=== PATIENT | female | born 2000 | race Caucasian/White ===

== ENCOUNTER 2021-05-08 14:15 | Outpatient (CLI) | payer MEDICAID, SELFPAY ==
[2021-05-08] VITALS (17 sets, daily range): BP systolic 130–196; BP diastolic 75–94; PULSE 75–110; RESP 17; TEMP 36
--- NOTE | 2021-05-08 14:54 | US_ITS ---
WS: [id number] Obstetrical ultrasound, limited. HISTORY: Injury to abdomen. COMPARISON: 02/08/2021. Single intrauterine gestation is identified with heart rate at 144 bpm. Fetus is in vertex presentati on. The cervix is not identified. The placenta is posterior with no previa or abruption. Normal amount of amniotic fluid. US/US OB limited [id number] IMPRESSION: 1. Posterior placenta with no previa or abruption. 2. Normal amniotic fluid. 3. Normal cardiac activity. 4. Cervix obscured by head.
[2021-05-08] MEDS: terbutaline 1 mg/mL INJ 0.25 MG SUBCUT (16:03)
[2021-05-08 16:59] LABS: Add Urine Microscopic? NO; Charge for UA Resulting for Rev
[2021-05-08 17:22] LABS: Bilirubin Urine Neg (Negative); Blood Urine Neg (Negative); Glucose Urine UA Norm (Normal); Ketones Urine Negative (Negative); Leukocyte Esterase Urine Negative (Negative); Nitrate Urine Negative (Negative); Protein Urine Neg (Negative); Specific Gravity, Urine 1.015 (1.005-1.030); Urine Appearance Clear (CLEAR); Urine Color Yellow (Yellow); Urobilinogen Urine Norm (Negative); pH Urine 6 (5-7)
[2021-05-08 17:23] LABS: Basophils % 0.3 %; Eosinophils # 0.1 10^3/uL (0.0-0.8); Eosinophils % 1.4 %; Hematocrit 38.9 % (37.0-47.0); Hemoglobin 12.1 g/dL (11.5-15.3); Lymphocytes # 1.7 10^3/uL (1.5-6.5); Lymphocytes % 16.8 %; Mean Corpuscular HGB Conc 31.1 g/dL (30.0-36.0); Mean Corpuscular Hemoglobin 27.3 pg (28.0-34.0); Mean Corpuscular Volume 87.6 fl (81-99); Mean Platelet Volume 10.5 fL (7.4-10.4); Monocytes % 9.8 %; Neutrophils # 6.57 10^3/uL (1.8-8.0); Nucleated Red Blood Cells % 0 %; Platelet Count 143 10^3/cmm (130-400); Red Blood Count 4.44 10^6/uL (4.1-5.3); Red Cell Distribution Width 14.1 % (12.1-15.1); White Blood Count 9.8 10^3/uL (4.5-13.0)
[2021-05-08 18:02] LABS: Alanine Aminotransferase 11 U/L (0-33); Albumin Level 3.9 g/dL (3.5-5.2); Alkaline Phosphatase 118 IU/L (35-105); Anion Gap 17.4 (5-19); Aspartate Amino Transferase 16 U/L (0-32); Blood Urea Nitrogen 12 mg/dL (6-20); Calcium 9.9 mg/dL (8.5-10.5); Carbon Dioxide 22 mmol/L (22-29); Chloride 100 mmol/L (98-107); Globulin 3.3 g/dL (1.3-4.6); Glomerular Filtration Rate 127.5 mL/min (90-130); Glucose 98 mg/dL (65-115); Osmolality Calculated 282 mOsm/kg (285-295); Potassium 3.4 mmol/L (3.5-5.1); Sodium 136 mmol/L (136-145); Total Bilirubin 0.2 mg/dL (0.15-1.2); Total Protein 7.2 g/dL (6.6-8.7); Uric Acid 4.2 mg/dL (2.4-5.7)
[2021-05-08 18:04] LABS: Urine Creatinine 45 mg/dL (28-217); Urine Protein Random 10 mg/dL
[2021-05-08 18:09] LABS: UPRO/UCREAT Ratio 0.22 mg/mg CR
== END 2021-05-08 18:14 | disposition home or self-care (01) ==
LOC: OPOB 14:24 → OBGYN 14:26
PROVIDERS: Visit Provider Family Medicine
DX: O26.899 Other specified pregnancy related conditions, unspecified trimester (principal); Z3A.00 Weeks of gestation of pregnancy not specified; R10.9 Unspecified abdominal pain
CPT/HCPCS: 36415; 59025; 76815; 80053; 81003; 82570; 84156; 84550; 85025; 96372; 99211; J3105

== ENCOUNTER 2021-05-27 19:44 | Inpatient (IN) | payer MEDICAID, SELFPAY ==
[2021-05-27] VITALS (25 sets, daily range): BP systolic 123–179; BP diastolic 73–114; PULSE 76–114; RESP 17; BMI 27.7
[2021-05-27 19:32] LABS: Basophils # 0.1 10^3/uL (0.0-0.1); Basophils % 0.4 %; Eosinophils # 0.2 10^3/uL (0.0-0.8); Eosinophils % 1.4 %; Hemoglobin 12.1 g/dL (11.5-15.3); Lymphocytes # 1.6 10^3/uL (1.5-6.5); Mean Corpuscular HGB Conc 32.7 g/dL (30.0-36.0); Mean Corpuscular Hemoglobin 27.4 pg (28.0-34.0); Mean Corpuscular Volume 83.9 fl (81-99); Mean Platelet Volume 10.8 fL (7.4-10.4); Monocytes # 1.2 10^3/uL (0.2-0.9); Neutrophils # 9.88 10^3/uL (1.8-8.0); Neutrophils % 74.7 %; Nucleated Red Blood Cells % 0 %; Platelet Count 164 10^3/cmm (130-400); Red Blood Count 4.41 10^6/uL (4.1-5.3); Red Cell Distribution Width 13.7 % (12.1-15.1); White Blood Count 13.2 10^3/uL (4.5-13.0)
[2021-05-27] MEDS: hyDRALAzine 20 mg/mL INJ 1 mL 10 MG IVP (19:38)
[2021-05-27 19:41] LABS: Add Urine Microscopic? YES; Bilirubin Urine Neg (Negative); Blood Urine 3+ (Negative); Glucose Urine UA Norm (Normal); Ketones Urine Negative (Negative); Leukocyte Esterase Urine 2+ (Negative); Nitrate Urine Negative (Negative); Protein Urine Trace (Negative); Specific Gravity, Urine 1.015 (1.005-1.030); Urine Color Yellow (Yellow); Urobilinogen Urine Norm (Negative); pH Urine 5 (5-7)
[2021-05-27] MEDS: dextrose 5%-lactated ringers 1,000 ML 125 ML IV (19:43)
[2021-05-27 19:49] LABS: Add Urine Culture? No; Amorphous Sediment Urine 1+ /hpf; Bacteria Urine 2+ /hpf; Squamous Epithelial Cell Urine 25-40 /hpf (0-5)
[2021-05-27 19:57] LABS: Alanine Aminotransferase 12 U/L (0-33); Albumin Level 3.8 g/dL (3.5-5.2); Alkaline Phosphatase 149 IU/L (35-105); Anion Gap 16.7 (5-19); Aspartate Amino Transferase 19 U/L (0-32); Blood Urea Nitrogen 12 mg/dL (6-20); Calcium 9.7 mg/dL (8.5-10.5); Carbon Dioxide 21 mmol/L (22-29); Chloride 100 mmol/L (98-107); Creatinine Clr Calc Pharmacy 163.0923; Globulin 3.3 g/dL (1.3-4.6); Glomerular Filtration Rate 127.5 mL/min (90-130); Glucose 81 mg/dL (65-115); Osmolality Calculated 277 mOsm/kg (285-295); Potassium 3.7 mmol/L (3.5-5.1); Sodium 134 mmol/L (136-145); Total Bilirubin 0.2 mg/dL (0.15-1.2); Total Protein 7.1 g/dL (6.6-8.7); Uric Acid 4.7 mg/dL (2.4-5.7)
[2021-05-27 20:00] LABS: Urine Creatinine 54 mg/dL (28-217); Urine Protein Random 18 mg/dL
[2021-05-27 20:08] LABS: UPRO/UCREAT Ratio 0.33 mg/mg CR
[2021-05-27] MEDS: labetalol 5 mg/mL SDV 20mL 20 MG IVP (20:19)
[2021-05-27] MEDS: hyDROXYzine 25 mg Capsule 50 MG PO (20:32)
[2021-05-27] MEDS: ondansetron 2 mg/ML SDV 2 mL 4 MG IVP (20:32)
[2021-05-27] MEDS: ampicillin 2,000 MG in sodium chloride 0.9% (plus) 50 ML 100 MG IV (20:33)
[2021-05-28] VITALS (168 sets, daily range): BP systolic 107–176; BP diastolic 66–118; PULSE 78–218; RESP 15–18; TEMP 36.2–37.6; O2SAT 82–100
[2021-05-28] MEDS: ampicillin 1,000 MG in sodium chloride 0.9% (plus) 50 ML 100 MG IV ×4 (00:40→13:11)
[2021-05-28] MEDS: oxytocin 30 UNIT/500 ML BAG IV (00:41)
[2021-05-28] MEDS: fentaNYL 50 mcg/mL INJ 2mL IVP (03:43)
[2021-05-28] MEDS: lactated ringers 1,000 ML 999 ML IV ×2 (03:47→14:22)
[2021-05-28] MEDS: labetalol 5 mg/mL SDV 20mL 20 MG IVP (04:19)
[2021-05-28] MEDS: ondansetron 2 mg/ML SDV 2 mL 4 MG IVP (04:48)
--- NOTE | 2021-05-28 04:50 | P.ANESUD_ITS ---
Pre-Anesthetic Update Pre-Anesthetic Assessment: Date of Surgery/Procedure: 05/28/21 Preop Jelly gnosis: labor pains Proposed Procedure: epidural Any changes to Pre-Anesthetic Assessment?: No Labs Last 48hrs: Short CBC 05/27/21 Range/Units 19:00 WBC 13.2 H (4.5-13.0) 10^3/ uL Hgb 12.1 (11.5-15.3) g/dL Hct 37.0 (37.0-47.0) % MCV 83.9 (81-99) fl Plt Count 164 (130-400) 10^3/c mm Neut % (Auto) 74.7 % Neut # (Auto) 9.88 H (1.8-8.0) 10^3/u L BMP 05/27/21 19:00 Sodium 134 L Potassium 3.7 Chloride 100 Carbon Dioxide 21 L BUN 12 Creatinine 0.6 Glucose 81 Calcium 9.7 Liver Function 05/27/21 Range/Units 19:00 Total Bilirubin 0.2 (0.15-1.2) mg/dL AST 19 (0-32) U/L ALT 12 (0-33) U/L Alkaline Phosphata se 149 H (35-105) IU/L Albumin 3.8 (3.5-5.2) g/dL Urine 05/27/21 Range/Units 19:00 Urine Color Yellow (Yellow) Urine Appearance Sl cloudy A (CLEAR) Urine pH 5 (5-7) Ur Specific Gravit y 1.015 (1.005-1.030) Urine Protein Trace (Negative) Urine Glucose (UA) Norm (Normal) Urine Ketones Negative (Negative) Urine Nitrate Negative (Negative) Urine Bilirubin Neg (Negative) Ur Leukocyte Fely ase 2+ H (Negative) Urine RBC 10-15 H (0-2) /hpf Urine WBC 10-15 H (0-5) /hpf Vitals: Pulse Rate 100 05/28/21 04:37 Pulse Rhythm 05/27/21 21:34 Pulse Strength 3+ Normal 05/27/21 21:34 Respiratory Rate 16 05/28/21 03:43 Respiratory Effort Non-Labored 05/27/21 21:34 Respiratory Depth Normal 05/27/21 21:34 Respiratory Patter n 05/27/21 21:34 Blood Pressure 151/90 05/28/21 04:37 Oxygen Delivery Me thod 05/27/21 21:34 Exam: Pre-Anes Outpt Exam: alert, oriented x 3, clear to auscultation bilaterally and regular rate & rhythm Cardiac Studies: No Data to Display
--- NOTE | 2021-05-28 05:23 | P.ANES_ITS ---
Anesthesia Procedures Procedure/Date: 05/28/21 epidural Procedure Narrative: epidural complete, bolus given, epidural pump initiated with REAL ESTATE SITE ANALYST education given, vitals taken during procedure using OBIX system and satisfactory throughout, patient admits to decrease pain, report of procedure to OB RN Epidural: Time Out Performed: Yes Consents Signed: Procedure Consent Consent: requested by attending/covering physician, from patient, risks and benefits reviewed and patient agrees to proceed Lumbar Level: L3-L4 Epidural position: sitting Epidural procedure: sterile prep of area, 1% lidocaine to numb the area (3 mL), 18 g needle, negative for paresthesia passed, neg for paresthesia, test dose given, 1.5% xylocaine 1:200k epi (5 mL), 0.2% Ropivacaine bolus ml (5 mL), placed PCEA, no systemic response, sterile dressing applied, L.U.D. no apparent complications and 0.2% Ropiavacaine @ mls/hr (13 mL/hr)
[2021-05-28] MEDS: dextrose 5%-lactated ringers 1,000 ML 125 ML IV ×2 (09:14→20:40)
--- NOTE | 2021-05-28 10:47 | PM.OPHPUD ---
Labor & Delivery H&P Update Date of Procedure: May 28, 2021 Date H&P Performed: 05/23/21 Admission Diagnosis: induced hypertension Preop diagnosis: labor pains Primary indication for procedure: severely elevated blood pressures at term Planned procedure: augmentation and/or induction of labor
[2021-05-28] MEDS: miSOPROStol 200 mcg Tablet 800 MCG PR (14:12)
[2021-05-28] MEDS: oxytocin 30 UNIT/500 ML BAG 600 UNIT IV (14:23)
--- NOTE | 2021-05-28 14:57 | P.ANESUD_ITS ---
Pre-Anesthetic Update Pre-Anesthetic Assessment: Date of Surgery/Procedure: 05/28/21 Preop Jelly gnosis: labor pains Proposed Procedure: Cervical laceration repair Changes from Pre-Anesthetic Assessment: none Last Intake: > 8 hrs Labs Last 48hrs: Short CBC 05/27/21 Range/Units 19:00 WBC 13.2 H (4.5-13.0) 10^3/ uL Hgb 12.1 (11.5-15.3) g/dL Hct 37.0 (37.0-47.0) % MCV 83.9 (81-99) fl Plt Count 164 (130-400) 10^3/c mm Neut % (Auto) 74.7 % Neut # (Auto) 9.88 H (1.8-8.0) 10^3/u L BMP 05/27/21 19:00 Sodium 134 L Potassium 3.7 Chloride 100 Carbon Dioxide 21 L BUN 12 Creatinine 0.6 Glucose 81 Calcium 9.7 Liver Function 05/27/21 Range/Units 19:00 Total Bilirubin 0.2 (0.15-1.2) mg/dL AST 19 (0-32) U/L ALT 12 (0-33) U/L Alkaline Phosphata se 149 H (35-105) IU/L Albumin 3.8 (3.5-5.2) g/dL Urine 05/27/21 Range/Units 19:00 Urine Color Yellow (Yellow) Urine Appearance Sl cloudy A (CLEAR) Urine pH 5 (5-7) Ur Specific Gravit y 1.015 (1.005-1.030) Urine Protein Trace (Negative) Urine Glucose (UA) Norm (Normal) Urine Ketones Negative (Negative) Urine Nitrate Negative (Negative) Urine Bilirubin Neg (Negative) Ur Leukocyte Fely ase 2+ H (Negative) Urine RBC 10-15 H (0-2) /hpf Urine WBC 10-15 H (0-5) /hpf Blood Bank 05/27/21 19:00 Blood Type B Positive Rho(D) Type Positive Antibody Screen Negative Vitals: Temperature 98.6 F 05/28/21 10:07 Temperature Source Oral 05/28/21 10:07 Pulse Rate 121 H 05/28/21 14:49 Pulse Rhythm 05/27/21 21:34 Pulse Strength 3+ Normal 05/27/21 21:34 Respiratory Rate 18 05/28/21 05:26 Respiratory Effort Non-Labored 05/27/21 21:34 Respiratory Depth Normal 05/27/21 21:34 Respiratory Patter n 05/27/21 21:34 Blood Pressure 139/90 05/28/21 14:45 Pulse Oximetry 100 05/28/21 14:49 Oxygen Delivery Me thod 05/27/21 21:34 Exam: Pre-Anes Outpt Exam: alert, oriented x 3, clear to auscultation bilaterally and regular rate & rhythm Additional Exam Findings (including area of procedure): tachy Cardiac Studies: No Data to Display
[2021-05-28 15:39] LABS: Hematocrit 31.7 % (37.0-47.0); Hemoglobin 10.1 g/dL (11.5-15.3); Mean Corpuscular HGB Conc 31.9 g/dL (30.0-36.0); Mean Corpuscular Hemoglobin 28.2 pg (28.0-34.0); Mean Corpuscular Volume 88.5 fl (81-99); Mean Platelet Volume 10.9 fL (7.4-10.4); Platelet Count 175 10^3/cmm (130-400); Red Blood Count 3.58 10^6/uL (4.1-5.3); Red Cell Distribution Width 14.2 % (12.1-15.1); White Blood Count 17.7 10^3/uL (4.5-13.0)
--- NOTE | 2021-05-28 16:22 | PM.OP ---
Operative Report Date of procedure: May 28, 2021 Pre-op diagnosis: Preop Diagnosis labor pains Post-op diagnosis: Status post spontaneous vaginal delivery. hemorrhage. Cervical laceration Post-op findings: Same as above Procedure done: Cervical laceration repair Specimens removed/disposition: None Pathology: None Surgeon: Hood Giron MD Estimated blood loss: 25 IV fluids (mL): 700 Urine output (mL): 1,200 Complications: none Procedure: The patient is a 21-year-old who delivered via vaginal delivery. Dr. Amaro had nurse call me due suspected laceration after delivery with hemorrage no responding to medical management. The uterus, however, was firm. A full evaluation of the cervix at bedside was limited but it was noted to have a posterior cervical laceration. The patient was counseled regading the findins and recommendation to take her to the OR for better exposure. The patient was taken to the OR, prepped and draped in a normal sterile fashion. Betadine was used to sterilize the area. A small Uriah retractor was used to retract redunt tissue then a weighted speculum was placed and good visualization of the area was noted. It was at this time when the extend of posterior cervical lacerations was noted. It was not currently bleeding at this time, however, it was clear that this needed to be repaired and 0 Vicryl on a SH needle was used to repair the cervical tears. The cervix patentcy was insure with the use of cervical dilator. It was determined at this point that the bleeding episode that she encountered was secondary to the cervical lacerations which was repaired at that time and brought under control. The patient tolerated the procedure well. No further uterine bleeding was noted during the procedure. The instruments were removed from the vagina, and excellent hemostasis was noted. The patient tolerated the procedure well, and sponge, lap and needle count were correct times two. The patient was taken to the recovery room in good condition.
--- NOTE | 2021-05-28 16:26 | P.PCNOB_ITS ---
Delivery Note: Date of delivery: May 28, 2021 Delivery: This is a 21-year-old at 38 weeks 0 days gestation who presented to labor and delivery complaining of regular contractions. She was noted to have some severely elevated blood pressures and decision was made to go ahead and augment and or induce for -induced hypertension. I do not suspect preeclampsia since she dipped trace protein in her urine however her urine protein creatinine ratio was 0.33. Her platelets AST, ALT and uric acid were within normal limits. The patient received an epidural for pain management and her labor was augmented using Pitocin. The patient had some difficulty with pushing and her contractions were not very strong nor were they coordinated. She was allowed to labor down but the infant only came down to +1 station. Mother was becoming exhausted with pushing so vacuum was applied with 2 pop offs. The vacuum moved to the to and mother was able to push the the rest of the way for delivery. weight 7 pounds 10 ounces, Apgars 9 and 9. She delivered over an intact perineum. The infant was suctioned at delivery and placed on the mother's chest. The cord was clamped and cut. Cord blood was obtained. The placenta was delivered grossly intact and normal to inspection. Immediately after delivery the patient had moderate vaginal bleeding that continued despite firm fundus and aggressive fundal massage. The patient was given 800 mcg of Cytotec rectally. She was also started on [place] 6 Ricky acid infusion. The patient continued to bleed at a rather brisk pace. Vaginal inspection revealed a full-thickness cervical tear at approximately 5:[address] to the posterior fornix. Pressure was applied and [employer] DECKHAND on-call Dr. Giron, anesthesia, and the surgical team were called. The patient was taken down to the OR for cervical laceration repair. EBL 1 Liter. A&P Assessment and plan (1) Status post vacuum-assisted vaginal delivery: Status: Acute (2) Cervical laceration: Status: Acute Coding Level of Care Code Acute Modeling Teacher for Anthony Abad Diagnoses Status post vacuum-assisted vaginal delivery Z87.59 Cervical laceration S37.63XA
--- NOTE | 2021-05-28 18:25 | PC.NURSE ---
Kiwi vacuum on at 1331 and 14 seconds, pop off at 1331 and 32 seconds. Kiwi on at 1331 and 50 seconds, pop off 1333 and 47 seconds. COMPA PEGUERO
[2021-05-28] MEDS: HYDROcodone-acetaminophen 5-325 mg Tablet PO (19:33)
[2021-05-28] MEDS: docusate sodium 100 mg Capsule PO (20:39)
[2021-05-28] MEDS: ketorolac 30 mg/mL INJ IVP (20:40)
[2021-05-29 01:00] VITALS: BP 130/84; PULSE 95; RESP 16; O2SAT 97
[2021-05-29] MEDS: benzocaine-menthol 78 gm Canister 1 SPRAY TOPICAL (01:11)
[2021-05-29] MEDS: ketorolac 30 mg/mL INJ IVP ×2 (02:26→08:35)
[2021-05-29 03:00] VITALS: BP 133/80; PULSE 93; O2SAT 98
[2021-05-29 05:17] LABS: Hematocrit 25.2 % (37.0-47.0); Hemoglobin 8.1 g/dL (11.5-15.3); Mean Corpuscular HGB Conc 32.1 g/dL (30.0-36.0); Mean Corpuscular Hemoglobin 27.7 pg (28.0-34.0); Mean Corpuscular Volume 86.3 fl (81-99); Mean Platelet Volume 10.5 fL (7.4-10.4); Platelet Count 108 10^3/cmm (130-400); Red Blood Count 2.92 10^6/uL (4.1-5.3); Red Cell Distribution Width 14.3 % (12.1-15.1); White Blood Count 13.3 10^3/uL (4.5-13.0)
[2021-05-29] MEDS: docusate sodium 100 mg Capsule PO ×2 (08:35→18:21)
[2021-05-29 08:41] VITALS: BP 143/89; PULSE 95; RESP 18; TEMP 36.9; O2SAT 97
[2021-05-29 11:02] VITALS: BP 126/88; PULSE 86; RESP 16; TEMP 36.7; O2SAT 96
--- NOTE | 2021-05-29 12:50 | PM.PN ---
Subjective Subjective: The patient has some lower abdominal soreness and some vaginal swelling but otherwise she is feeling well. She has been ambulating the halls. She is tolerating a regular diet. Vitals/I&O/Wt Last Vital Signs Temp 98.1 F 05/29/21 11:02 Pulse 86 05/29/21 11:02 Resp 16 05/29/21 11:02 BP 126/88 05/29/21 11:02 Pulse Ox 96 05/29/21 11:02 05/28/21 05/29/21 05/29/21 22:59 06:59 14:59 Intake Total 0 / 1052.083 Output Total 3525 / 3525 650 / 4175 Balance -3525 / -2472.917 -650 / -3122.917 Weight last 48 hrs Weight 80.286 kg Physical Exam Narrative: Alert and oriented, resting in bed, pupils equal round reactive to light, extraocular movements intact, lungs clear to auscultation bilaterally, heart regular rate and rhythm abdomen is soft with some tenderness only to very deep palpation. Fundus is nice and firm, extremities have trace edema with no calf tenderness. Urinary Catheter Management: Valdes Latex: Cath Placed During This Visit: yes, but has since been removed by the nurse Reason for Continuing Indwelling Catheter: Accurate Measurement of Urinary Output in Critically Ill Patients Urinary Catheter Date of Insertion: 05/28/21 Urinary Catheter Time of Insertion: 15:20 Date Urinary Catheter Removed: 05/28/21 Time Urinary Catheter Discontinued: 16:20 Data : 05/29/21 05:07 05/27/21 19:00 A&P Assessment and plan (1) Status post vacuum-assisted vaginal delivery: day #1 doing well Status: Acute (2) Cervical laceration: Postop day #1 doing well Status: Acute (3) Acute blood loss anemia: Secondary to cervical laceration during delivery. The patient is asymptomatic. She has been ambulating the hallways without dizziness. Status: Acute Attestations Medical Necessity Statement*: Routine and postoperative care Coding Level of Care Code Acute Inbound Customer Service Agent for Anthony Fwmichelet Diagnoses Status post vacuum-assisted vaginal delivery Z87.59 Cervical laceration S37.63XA Acute blood loss anemia D62
[2021-05-29 14:00] VITALS: BP 120/72; PULSE 86; RESP 18; TEMP 36.4
--- NOTE | 2021-05-29 15:24 | ANE.PACU2 ---
Inpatient post-anesthesia follow up: Airway intact: Yes Vital signs: Temperature 98.1 F Pulse Rate 86 Respiratory Rate 16 Blood Pressure 126/88 Pulse Oximetry 96 Oxygen Delivery Me thod Room Air Oxygen Flow Rate Fraction of Inspir ed Oxygen Hydration adequate: Yes Nausea and vomiting: No Pain level: 2 Mental status: Baseline
[2021-05-29] MEDS: ibuprofen 800 mg tablet PO (16:34)
[2021-05-29 20:59] VITALS: BP 142/82; PULSE 93; TEMP 36.9; O2SAT 97
[2021-05-30] MEDS: ibuprofen 800 mg tablet PO ×3 (00:37→15:13)
[2021-05-30 03:48] VITALS: BP 138/88; PULSE 87; RESP 17; TEMP 36.5; O2SAT 98
[2021-05-30] MEDS: docusate sodium 100 mg Capsule PO (08:41)
[2021-05-30 08:52] VITALS: BP 139/94; PULSE 89; RESP 17; TEMP 36.6
--- NOTE | 2021-05-30 12:49 | PM.DCS ---
Discharge Providers Date of Admission: 05/27/21 19:44 Date of Discharge: May 30, 2021 Attending Provider at Admission: Anh Amaro MD Attending Provider at Discharge: Anh Amaro MD Diagnoses at Discharge Discharge Diagnosis (1) Status post vacuum-assisted vaginal delivery: Status: Acute (2) Cervical laceration: Status: Acute (3) Acute blood loss anemia: Status: Acute Reason for Visit Reason for Visit: Abdominal pain Hospital Course Hospital Course This is a 21-year-old G1 now P1 who had a vacuum-assisted vaginal delivery of a viable female infant. She had a posterior cervical laceration that caused excessive blood loss and she was taken immediately to the OR downstairs for cervical repair. This was performed by Dr. Giron. Postoperatively the patient did well. Her bleeding was average. She was ambulating, tolerating a regular diet, and had no significant pain on the day of discharge. Physical Exam Narrative: Alert and oriented, walking around the room packing, abdomen is soft nontender, fundus is firm, extremities have no calf tenderness, there is trace nonpitting edema. Urinary Catheter Management: Valdes Latex: Cath Placed During This Visit: yes, but has since been removed by the nurse Reason for Continuing Indwelling Catheter: Accurate Measurement of Urinary Output in Critically Ill Patients Urinary Catheter Date of Insertion: 05/28/21 Urinary Catheter Time of Insertion: 15:20 Date Urinary Catheter Removed: 05/28/21 Time Urinary Catheter Discontinued: 16:20 Discharge Data Studies Completed and Pending Pending at discharge Category Date Time Status Leukocyte Reduced RBC Stat Lab 05/28/21 14:08 Results Type and Screen Stat Lab 05/28/21 14:08 Results Laboratory Results WBC 13.3 10^3/uL (4.5-13.0) H 05/29/21 05:07 RBC 2.92 10^6/uL (4.1-5.3) L 05/29/21 05:07 Hgb 8.1 g/dL (11.5-15.3) L 05/29/21 05:07 Hct 25.2 % (37.0-47.0) L 05/29/21 05:07 MCV 86.3 fl (81-99) 05/29/21 05:07 MCH 27.7 pg (28.0-34.0) L 05/29/21 05:07 MCHC 32.1 g/dL (30.0-36.0) 05/29/21 05:07 RDW 14.3 % (12.1-15.1) 05/29/21 05:07 Plt Count 108 10^3/cmm (130-400) L D 05/29/21 05:07 MPV 10.5 fL (7.4-10.4) H 05/29/21 05:07 Neut % (Auto) 74.7 % 05/27/21 19:00 Lymph % (Auto) 12.0 % 05/27/21 19:00 [place] % (Auto) 9.0 % 05/27/21 19:00 Eos % (Auto) 1.4 % 05/27/21 19:00 Baso % (Auto) 0.4 % 05/27/21 19:00 Neut # (Auto) 9.88 10^3/uL (1.8-8.0) H 05/27/21 19:00 Lymph # (Auto) 1.6 10^3/uL (1.5-6.5) 05/27/21 19:00 [place] # (Auto) 1.2 10^3/uL (0.2-0.9) H 05/27/21 19:00 Eos # (Auto) 0.2 10^3/uL (0.0-0.8) 05/27/21 19:00 Baso # (Auto) 0.1 10^3/uL (0.0-0.1) 05/27/21 19:00 Nucleated RBC % (auto) 0 % 05/27/21 19:00 Nucleated RBCs # 0.0 /100WBC 05/27/21 19:00 Sodium 134 mmol/L (136-145) L 05/27/21 19:00 Potassium 3.7 mmol/L (3.5-5.1) 05/27/21 19:00 Chloride 100 mmol/L (98-107) 05/27/21 19:00 Carbon Dioxide 21 mmol/L (22-29) L 05/27/21 19:00 Anion Gap 16.7 (5-19) 05/27/21 19:00 BUN 12 mg/dL (6-20) 05/27/21 19:00 Creatinine 0.6 mg/dL (0.5-0.9) 05/27/21 19:00 GFR Calculation 127.5 mL/min (90-130) 05/27/21 19: Glucose 81 mg/dL (65-115) 05/27/21 19: Calculated Osmolality 277 mOsm/kg (285-295) L 05/27/21 19: Uric Acid 4.7 mg/dL (2.4-5.7) 05/27/21 19: Calcium 9.7 mg/dL (8.5-10.5) 05/27/21 19: Total Bilirubin 0.2 mg/dL (0.15-1.2) 05/27/21 19:00 AST 19 U/L (0-32) 05/27/21:00 ALT 12 U/L (0-33) 05/27/21: Alkaline Phosphatase 149 IU/L (35-105) H 05/27/21 19:00 Total Protein 7.1 g/dL (6.6-8.7) 05/27/21: Albumin 3.8 g/dL (3.5-5.2) 05/27/21 19: Globulin 3.3 g/dL (1.3-4.6) 05/27/21 19:00 Urine Color Yellow (Yellow) 05/27/21 19:00 Urine Appearance Sl cloudy (CLEAR) A 05/27/21 19:00 Urine pH 5 (5-7) 05/27/21 19: Ur Specific [place] 1.015 (1.005-1.030) 05/27/21 19: Urine Protein Trace (Negative) 05/27/21 19: Urine Glucose (UA) Norm (Normal) 05/27/21 19:00 Urine Ketones Negative (Negative) 05/27/21 19: Urine Blood 3+ (Negative) H 05/27/21 19:00 Urine Nitrate Negative (Negative) 05/27/21 19:00 Urine Bilirubin Neg (Negative) 05/27/21 19: Urine Urobilinogen Norm mg/dL (Negative) 05/27/21 19:00 Ur Leukocyte Esterase 2+ (Negative) H 05/27/21 19:00 Urine RBC 10-15 /hpf (0-2) H 05/27/21 19:00 Urine WBC 10-15 /hpf (0-5) H 05/27/21 19:00 Ur Squamous Epith Cells 25-40 /hpf (0-5) H 05/27/21 19:00 Amorphous Sediment 1+ /hpf 05/27/21 19:00 Urine Bacteria 2+ /hpf (NONE) H 05/27/21 19:00 U Random Total Protein 18 mg/dL 05/27/21 19:00 Urine Creatinine 54 mg/dL (28-217) 05/27/21 19:00 Protein/Creatinin Ratio 0.33 mg/mg CR 05/27/21 19:00 Blood Type B Positive 05/27/21 19:00 Rho(D) Type Positive 05/27/21 19:00 Antibody Screen Negative 05/27/21 19:00 Crossmatch See Detail 05/27/21 19:00 Vitals Last Vital Signs Temp 97.8 F 05/30/21 08:52 Pulse 89 05/30/21 08:52 Resp 17 05/30/21 08:52 BP 139/94 05/30/21 08:52 Pulse Ox 98 05/30/21 03:48 Discharge Plan Discharge Patient Disposition: Home Condition: Stable Prescriptions: New ferrous sulfate 325 mg (65 mg iron) tablet,delayed release (DR/EC) 325 mg PO DAILY Qty: 30 0RF Continued Complete 1 tab PO DAILY 0RF Discharge Orders: Discharge Order (Routine); Ordered 05/30/21 Ordered By: Anh Amaro Referrals: Anh Amaro MD [Physician] - 2 weeks Discharge Diet: Usual diet Discharge Activity: Limit activity as instructed Patient Instructions: Depression (DC), Bleeding (DC), Preeclampsia and Eclampsia After Delivery (GEN), OB Discharge Report, OB Food/Drug Interaction Guide, Opioid Safety, OB Home Care, OB Vaginal Deliveries Discharge Attestations Time Spent in Discharge Care*: less than 30 min Quality Metrics Clinical Quality Measures [ No reported AMI, CVA or VTE this stay] Coding Level of Care Code Acute Chg FW DC note Diagnoses Status post vacuum-assisted vaginal delivery Z87.59 Cervical laceration S37.63XA Acute blood loss anemia D62
[2021-05-30 15:15] VITALS: BP 126/84; PULSE 88; RESP 16; TEMP 36.8
== END 2021-05-30 15:15 | disposition home or self-care (01) | DRG 768 ==
LOC: OPOB 19:44 → OBGYN 19:44
PROVIDERS: Obstetrics & Gynecology; Admitting Provider Family Medicine; Visit Provider Family Medicine
PROC: 0UQG0ZZ Repair Vagina, Open Approach (ICD-10-PCS; 2021-05-28 15:15)
DX: O13.4 Gestational [pregnancy-induced] hypertension without significant proteinuria, complicating childbirth (principal); Z37.0 Single live birth; D62 Acute posthemorrhagic anemia; O71.3 Obstetric laceration of cervix; Z3A.38 38 weeks gestation of pregnancy; O90.81 Anemia of the puerperium
CPT/HCPCS: 36415; 51702; 59025; 59409; 80053; 81001; 82570; 84156; 84550; 85025; 85027; 86850; 86900; 86920; 99211; J0290; J0330; J0360; J1100; J1885; J2250; J2405; J2704; J2795; J3010; J3490

== ENCOUNTER 2022-01-19 09:02 | Emergency (ER) | payer MEDICAID, SELFPAY ==
[2022-01-19 09:21] VITALS: BP 134/88; PULSE 103; RESP 16; TEMP 36.4; O2SAT 96; BMI 25.8
--- NOTE | 2022-01-19 09:49 | ED_ITS ---
HPI - Ear Problem General: Chief complaint: Ear Stated complaint: ear infection, fever Time Seen by Provider: 01/19/22 09:04 History of Present Illness: Patient reports that she is feeling generally terrible. She offers that for 2 to 3 weeks she has had significant nasal congestion and drainage. She reports that approximately a week ago she started having intermittent right ear pain. She reports that last night she developed a fever and her ear pain worsened tremendously. She states that her right ear hurts all along her cheek on the right side hurts in the right side of her throat hurts to swallow. She denies any possibility of at this time she is not breast-feeding. Associated symptoms: Reports ear or mastoid pain and fever(s) Review of Systems Const: Reports: fever(s), chills and body aches ENMT: Reports: throat pain, ear or mastoid pain, nasal discharge, nasal congestion, post nasal drip and sinus pain Card: Denies: chest pain or palpitations Resp: Denies: dyspnea, productive cough or non-productive cough GI: Denies: abdominal pain, nausea or vomiting Physical Exam Const: COMMON NORMALS: patient oriented x3 and alert OTHER: Patient is tearful and ill-appearing, but appears nontoxic HENMT: FACE & SINUS: Facial tenderness on exam of face and sinuses on the right maxilla NOSE: Nasal discharge present clear TYMPANIC MEMBRANE: TM normal on the left and TM abnormal TM laterality: right Details: bulging, erythematous and loss of landmarks THROAT: uvula midline and postnasal drainage Neck/C-Spine: COMMON NORMALS: no JVD Resp: COMMON NORMALS: normal respiratory effort, No use of accessory muscles and clear to auscultation bilaterally AUSCULTATION: clear to auscultation bilaterally Cardio: COMMON NORMALS: no JVD, regular rate, regular rhythm, S1 normal heart sound present, S2 normal heart sound present and No murmurs present (Cardio) RATE: regular rate RHYTHM: regular rhythm HEART SOUNDS: S1 normal heart sound present and S2 normal heart sound present Neuro: COMMON NORMALS: patient oriented x3 SENSORIUM/ORIENTATION: Yes alert Course Vital Signs: Vital signs: Vital Signs Temperature 97.6 F 01/19/22 09:21 Pulse Rate 103 H 01/19/22 09:21 Respiratory Rate 16 01/19/22 09:21 Blood Pressure 134/88 01/19/22 09:21 Pulse Oximetry 96 01/19/22 09:21 Oxygen Delivery Me thod 01/19/22 09:21 MDM - Ear Medical Decision Making Patient is in today for nasal congestion and drainage persisting over the past 3 weeks and worsening over the past 24 hours. Physical exam is consistent with tenderness to palpation over the right maxillary sinus right TM is bulging and erythematous without loss of landmarks. We will treat patient to cover for acute maxillary sinusitis with otitis media. Discussed conservative management at home for controlling postnasal drainage with antihistamine and nasal steroid such as Flonase. Advised patient follow-up with PCP as needed. Return to ER for new or worsening symptoms. Discharge Plan Discharge Patient Disposition: Home Clinical Impression: Otitis media Acute maxillary sinusitis Qualifiers: Recurrence: not specified as recurrent Qualified Code(s): J01.00 - Acute maxillary sinusitis, unspecified Condition: Stable Prescriptions: New amoxicillin 875 mg tablet 875 mg PO BID 10 Days Qty: 20 0RF No Action Complete 1 tab PO DAILY ferrous sulfate 325 mg (65 mg iron) tablet,delayed release (DR/EC) 325 mg PO DAILY Qty: 30 0RF Discharge Orders: Discharge ED (Routine); Ordered 01/19/22 Ordered By: Melisa Reinoso Discharge Diet: Usual diet Discharge Activity: Resume usual activity Patient Instructions: Sinusitis - Acute Activity Restrictions/Additional Instructions: Take antibiotics as prescribed and complete the entire prescription. I recommend a Claritin or Zyrtec [id number] along with Flonase. This will help to control postnasal drainage and nasal allergies. You can use the [place] pot or other sinus rinses to help relieve some pressure. Tylenol Motrin as needed for pain and discomfort. Follow-up with primary care provider as needed. Return to the ER for any new or worsening symptoms. Coding Level of Care Code ED Loading Supervisor for Anthony Abad
[2022-01-19 10:11] VITALS: BP 133/94; O2SAT 98
== END 2022-01-19 10:21 | disposition home or self-care (01) ==
PROVIDERS: Emergency Provider Nurse Practitioner Family
DX: H66.91 Otitis media, unspecified, right ear (principal); J01.00 Acute maxillary sinusitis, unspecified
CPT/HCPCS: 99283

== ENCOUNTER → 2022-02-15 18:42 | Outpatient (BNVA) | payer MEDICAID, SELFPAY | PROVIDERS: Visit Provider Registered Nurse Neonatal Intensive Care | DX: R50.9 Fever, unspecified (principal) | CPT/HCPCS: 87400 ==

== ENCOUNTER 2023-06-10 08:14 | Emergency (ER) | payer SELFPAY ==
--- NOTE | 2023-06-10 08:30 | CT_ITS ---
WS: [id number] Examination: CT head wo con* [id number] Reason for Exam: trauma Date: June 10, 2023 Comparison: None. DLP: 1054.[address] scans at [facility] use at least one of these dose optimization techniques: automated e xposure control; mA and/or kV adjustment per patient size (includes targeted exams where dose is matc hed to clinical indication); or iterative reconstruction. Findings: The ventricles and sulci are within normal limits. There is no midline shift or hydrocephalus. There is good baer-white matter differentiation. There is no intracranial hemorrhage or hematoma. No depressed skull fracture is identified. The visualized paranasal sinuses are well aerated. Impression: There is no intracranial hemorrhage or hematoma.
[2023-06-10 08:32] VITALS: BP 154/101; PULSE 107; RESP 20; TEMP 37.4; O2SAT 97
[2023-06-10] MEDS: ondansetron 2 mg/ML SDV 2 mL 4 MG IVP (08:38)
[2023-06-10 08:44] LABS: Basophils % 0.2 %; Eosinophils % 0.2 %; Hematocrit 42.9 % (36-47); Lymphocytes # 1.1 10^3/uL (0.8-4.8); Lymphocytes % 12.4 %; Mean Corpuscular HGB Conc 32.2 g/dL (30-55); Mean Corpuscular Hemoglobin 26.3 pg (27-33); Mean Corpuscular Volume 81.7 fl (85-98); Mean Platelet Volume 10.7 fL (7.4-10.4); Monocytes # 0.6 10^3/uL (0.2-0.9); Monocytes % 6.6 %; Neutrophils # 6.98 10^3/uL (1.8-7.7); Neutrophils % 80.3 %; Nucleated Red Blood Cells % 0 %; Platelet Count 216 10^3/cmm (157-399); Red Blood Count 5.25 10^6/uL (3.85-5.65); Red Cell Distribution Width 13.4 % (12.1-15.1)
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
[2023-06-10 08:56] LABS: HCG, Serum Qual Negative (Negative)
[2023-06-10 09:01] LABS: Alanine Aminotransferase 9 U/L (0-33); Albumin Level 4.6 g/dL (3.5-5.2); Alkaline Phosphatase 72 U/L (35-105); Aspartate Amino Transferase 19 U/L (0-32); Blood Urea Nitrogen 17 mg/dL (6-20); Calcium 9.5 mg/dL (8.5-10.5); Carbon Dioxide 22 mmol/L (22-29); Chloride 104 mmol/L (98-107); Creatinine Clr Calc Pharmacy 131.3253; Globulin 3.3 g/dL (1.3-4.6); Glomerular Filtration Rate 104.6 mL/min (90-130); Glucose 93 mg/dL (65-115); Osmolality Calculated 289 mOsm/kg (285-295); Sodium 139 mmol/L (136-145); Total Bilirubin 0.5 mg/dL (0.15-1.2); Total Protein 7.9 g/dL (6.6-8.7)
[2023-06-10 09:02] LABS: Add Urine Microscopic? NO; Charge for UA Resulting for Rev
--- NOTE | 2023-06-10 09:04 | CT_ITS ---
WS: [id number] CT ABDOMEN AND PELVIS NONCONTRAST HISTORY: Abdominal pain TECHNIQUE: Imaging performed through the abdomen and pelvis. Coronal and sagittal reformats are submi tted. All CT scans at [facility] use at least one of these dose optimization techniques: auto mated exposure control; mA and/or kV adjustment per patient size (includes targeted exams where dose is matched to clinical indication); or iterative reconstruction. DLP: 460.64 mGy.cm COMPARISON: None available. Lower thorax: Lung bases are clear. Visualized heart is normal. No hiatal hernia. Liver: Normal size liver. No mass or bile duct dilatation. Gallbladder: Normal gallbladder. No pericholecystic fluid or cholelithiasis. No gallbladder wall thic kening. Pancreas: Normal size and attenuation. Normal pancreatic duct. No pancreatitis or mass. Spleen: Normal. Adrenal glands: Normal. No mass. Right kidney: Normal size kidney with no mass or hydronephrosis. Left kidney: Normal size kidney with no mass or hydronephrosis. Aorta: Normal abdominal aorta, no aneurysm or atherosclerosis. No free fluid, intraperitoneal air or significant lymphadenopathy. GI tract: Normal noncontrast imaging of the stomach, small bowel and colon. No obstruction or wall th ickening. Normal appendix. Abdominal wall: Tiny abdominal wall hernia containing fat only. Pelvis: Tiny amount of physiologic free fluid in the pelvis. RIGHT ovarian cyst 3.5 x 3.7 cm. Uterus is midline. Osseous structures: Unremarkable. IMPRESSION: 1. No acute abdominal or pelvic abnormalities. No hematoma. 2. RIGHT adnexal cystic mass. Most consistent with a RIGHT ovarian cyst. Cyst measures 3.5 x 3.7 cm. 3. No mesenteric hematoma or ascites.
[2023-06-10 09:16] LABS: Bilirubin Urine Neg (Negative); Blood Urine Neg (Negative); Glucose Urine UA Norm (Normal); Ketones Urine 2+ (Negative); Leukocyte Esterase Urine Negative (Negative); Nitrate Urine Negative (Negative); Protein Urine Neg (Negative); Urine Appearance Clear (CLEAR); Urine Color Yellow (Yellow); Urobilinogen Urine Neg (Negative); pH Urine 6 (5-7)
[2023-06-10] MEDS: sodium chloride 0.9% 1,000 ML 999 ML IV (10:14)
[2023-06-10 10:55] VITALS: BP 128/72; PULSE 68; O2SAT 98
== END 2023-06-10 10:57 | disposition home or self-care (01) ==
PROVIDERS: Emergency Provider Family Medicine
DX: S06.0XAA Concussion with loss of consciousness status unknown, initial encounter (principal); Y04.8XXA Assault by other bodily force, initial encounter
CPT/HCPCS: 70450; 74176; 80053; 81003; 84703; 85025; 96374; 99285; J2405; J7030

== ENCOUNTER 2024-03-19 09:51 | Emergency (ER) | payer OTHER, SELFPAY ==
[2024-03-19] VITALS (7 sets, daily range): BP systolic 102–118; BP diastolic 51–76; PULSE 68–101; RESP 16–20; TEMP 36.6; O2SAT 98–100; BMI 20.9
--- NOTE | 2024-03-19 11:15 | CT_ITS ---
WS: [id number] CT HEAD NONCONTRAST HISTORY: saavedra TECHNIQUE: Contiguous axial imaging performed through the brain. Bone and soft tissue windows. Sagitt al and coronal reformats reviewed. All CT scans at [facility] use at least one of these dose optimization techniques: automated exposure control; mA and/or kV adjustment per patient size (includ es targeted exams where dose is matched to clinical indication); or iterative reconstruction. DLP: 1075.28 mGy.cm COMPARISON: 06/10/2023 No acute intracranial hemorrhage, midline shift or mass effect. No atrophy or prior infarcts or herniation. Ventricles: Normal size with no hydrocephalus. No inferior displacement of the cerebellar tonsils. Paranasal sinuses: As visualized are clear. Mastoid air cells: Well pneumatized. Calvarium and scalp: Skull is intact with no soft tissue edema or swelling. CT/CT head wo con* [id number] IMPRESSION: Negative head CT.
--- NOTE | 2024-03-19 11:23 | ED_ITS ---
HPI - Headache 2 General: Chief Complaint: Headache Stated Complaint: headache Time Seen by Provider: 03/19/24 11:02 Source: patient Mode of arrival: ambulatory Limitations: no limitations History of Present Illness: 24-year-old female states she has had a headache since last night. She states that started as a frontal headache she states it is worsened she has had some vomiting as well. She states that her headache currently is a 6 out of 10 denies this being the worst headache of her life she denies any fevers currently. States she has had multiple episodes of vomiting Associated symptoms: Reports nausea and vomiting; Deny chest pain or rash Related Data Home Medications Medication Instructions Recorded Confirmed acetaminophen 500 mg tablet 1,000 mg PO Q6H PRN Pain 06/10/23 03/19/24 ibuprofen 200 mg capsule 800 mg PO Q6H PRN Pain 06/10/23 03/19/24 Previous Rx's Medication Instructions Recorded ferrous sulfate 325 mg (65 mg 325 mg PO DAILY #30 tabs 05/30/21 iron) tablet,delayed release Allergies Allergy/AdvReac Type Severity Reaction Status Date / Time No Known Allergies Allergy Verified 02/15/22 18:38 Review of Systems 2 Const: Denies: chills, body aches or change in appetite Eyes: Denies: blurry vision or eye discomfort ENMT: Denies: throat pain or dental pain Card: Denies: chest pain Resp: Denies: dyspnea GI: Reports: nausea and vomiting; Denies: abdominal pain or diarrhea : Denies: dysuria Musc: Denies: neck pain or back pain Skin/Breast: Denies: rash Neuro: Reports: headache(s) [facility] ED 2 Female Reproductive History: Date of last menstrual period: 02/25/24 Physical Exam 2 Const: COMMON NORMALS: no acute distress, patient oriented x3 and healthy appearing HENMT: COMMON NORMALS: normocephalic and atraumatic HEAD & SCALP: n ormocephalic and atraumatic Eye: COMMON NORMALS: Equal, round and reactive pupils present, EOMs intact bilaterally and conjunctivae normal CONJUNCTIVA: Yes conjunctivae normal P UPIL: Yes Equal, round and reactive pupils present Neck/C-Spine: COMMON NORMALS: full ROM, supple and no meningeal signs Chest: COMMONS NORMALS: normal inspection of the chest Resp: COMMON NORMALS: normal respiratory effort, No retractions, No use of accessory muscles and clear to auscultation bilaterally AUSCULTATION: clear to auscultation bilaterally Cardio: COMMON NORMALS: regular rate, regular rhythm and No murmurs present (Cardio) RATE: regular rate RHYTHM: regular rhythm Extremity: COMMON NORMALS: normal to inspection and full ROM Neuro: COMMON NORMALS: patient oriented x3, moves all extremities and no focal motor deficits MENINGEAL SIGNS: Yes no meningeal signs Psych: COMMON NORMALS: mental status grossly normal, Normal thought process present and cooperative THOUGHT PROCESS: Normal thought process present Skin: COMMON NORMALS: no rashes or lesions noted and no wounds GENERAL SKIN EXAM: no rashes or lesions noted Course 2 Vital Signs: Vital signs: Vital Signs Temperature 97.9 F 03/19/24 09:55 Pulse Rate 82 03/19/24 12:11 Respiratory Rate 16 03/19/24 12:11 Blood Pressure 116/51 03/19/24 12:11 Pulse Oximetry 100 03/19/24 12:11 Oxygen Delivery Me thod Room Air 03/19/24 09:55 MDM - Headache Medical Decision Making Patient presents here with headache likely a tension headache she has no signs of subarachnoid hemorrhage or meningitis headache here is much improved blood works normal as well she is follow-up with PCP and return if worsening she understands agrees to plan Medical Records I reviewed the patient's medical records. Lab Data I reviewed the patient's lab results. 03/19/24 11:30 03/19/24 11:[address] 03/19/24 11:15 IMPRESSION: Negative head CT. Laboratory Results WBC 6.16 10^3/uL (3.29-11.43) 03/19/24 11:30 RBC 5.22 10^6/uL (3.85-5.65) 03/19/24 11:30 Hgb 14.00 g/dL (11.27-16.99) 03/19/24 11:30 Hct 44.2 % (36-47) 03/19/24 11:30 MCV 84.7 fl (85-98) L 03/19/24 11:30 MCH 26.8 pg (27-33) L 03/19/24 11:30 MCHC 31.7 g/dL (30-55) 03/19/24 11:30 RDW 13.0 % (12.1-15.1) 03/19/24 11:30 Plt Count 194 10^3/cmm (157-399) 03/19/24 11:30 MPV 10.0 fL (7.4-10.4) 03/19/24 11:30 Neut % (Auto) 80.4 % 03/19/24 11:30 Lymph % (Auto) 13.5 % 03/19/24 11:30 [place] % (Auto) 5.2 % 03/19/24 11:30 Eos % (Auto) 0.2 % 03/19/24 11:30 Baso % (Auto) 0.2 % 03/19/24 11:30 Neut # (Auto) 4.96 10^3/uL (1.8-7.7) 03/19/24 11:30 Lymph # (Auto) 0.8 10^3/uL (0.8-4.8) 03/19/24 11:30 [place] # (Auto) 0.3 10^3/uL (0.2-0.9) 03/19/24 11:30 Eos # (Auto) 0.0 10^3/uL (0.0-0.8) 03/19/24 11:30 Baso # (Auto) 0.0 10^3/uL (0.0-0.1) 03/19/24 11:30 Nucleated RBC % (auto) 0 % 03/19/24 11:30 Nucleated RBCs # 0.0 /100WBC 03/19/24 11:30 Sodium 137 mmol/L (136-145) 03/19/24 11:30 Potassium 3.9 mmol/L (3.5-5.1) 03/19/24 11:30 Chloride 99 mmol/L (98-107) 03/19/24 11:30 Carbon Dioxide 26 mmol/L (22-29) 03/19/24 11:30 Anion Gap 15.9 (5-19) 03/19/24 11:30 BUN 12 mg/dL (6-20) 03/19/24 11:30 Creatinine 0.6 mg/dL (0.5-0.9) 03/19/24 11:30 GFR Calculation 123.9 mL/min (90-130) 03/19/24 11:30 Glucose 86 mg/dL (65-115) 03/19/24 11:30 Calculated Osmolality 283 mOsm/kg (285-295) L 03/19/24 11:30 Calcium 9.8 mg/dL (8.5-10.5) 03/19/24 11:30 Total Bilirubin 0.4 mg/dL (0.15-1.2) 03/19/24 11:30 AST 15 U/L (0-32) 03/19/24 11:30 ALT 12 U/L (0-33) 03/19/24 11:30 Alkaline Phosphatase 76 U/L (35-105) 03/19/24 11:30 Total Protein 8.2 g/dL (6.6-8.7) 03/19/24 11:30 Albumin 4.6 g/dL (3.5-5.2) 03/19/24 11:30 Globulin 3.6 g/dL (1.3-4.6) 03/19/24 11:30 No radiology studies performed this visit Discharge Plan Discharge Patient Disposition: Home Clinical Impression: Headache Condition: Stable Prescriptions: No Action ibuprofen 200 mg Capsule 800 mg PO Q6H PRN (Reason: Pain) acetaminophen 500 mg Tablet 1,000 mg PO Q6H PRN (Reason: Pain) ferrous sulfate 325 mg (65 mg iron) tablet,delayed release (DR/EC) 325 mg PO DAILY Qty: 30 0RF Discharge Orders: Discharge ED (Routine); Ordered 03/19/24 Ordered By: Allyssa Vogel Discharge Diet: Advance as tolerated Discharge Activity: Resume usual activity Patient Instructions: Acute Headache (ED) Coding Level of Care Code ED Herb Doctor for Anthony Abad
[2024-03-19 11:42] LABS: Basophils % 0.2 %; Eosinophils % 0.2 %; Hematocrit 44.2 % (36-47); Lymphocytes # 0.8 10^3/uL (0.8-4.8); Lymphocytes % 13.5 %; Mean Corpuscular HGB Conc 31.7 g/dL (30-55); Mean Corpuscular Hemoglobin 26.8 pg (27-33); Mean Corpuscular Volume 84.7 fl (85-98); Monocytes # 0.3 10^3/uL (0.2-0.9); Monocytes % 5.2 %; Neutrophils # 4.96 10^3/uL (1.8-7.7); Neutrophils % 80.4 %; Nucleated Red Blood Cells % 0 %; Platelet Count 194 10^3/cmm (157-399); Red Blood Count 5.22 10^6/uL (3.85-5.65); White Blood Count 6.16 10^3/uL (3.29-11.43)
[2024-03-19 12:03] LABS: Alanine Aminotransferase 12 U/L (0-33); Albumin Level 4.6 g/dL (3.5-5.2); Alkaline Phosphatase 76 U/L (35-105); Anion Gap 15.9 (5-19); Aspartate Amino Transferase 15 U/L (0-32); Blood Urea Nitrogen 12 mg/dL (6-20); Calcium 9.8 mg/dL (8.5-10.5); Carbon Dioxide 26 mmol/L (22-29); Chloride 99 mmol/L (98-107); Creatinine Clr Calc Pharmacy 141.0542; Globulin 3.6 g/dL (1.3-4.6); Glomerular Filtration Rate 123.9 mL/min (90-130); Glucose 86 mg/dL (65-115); Osmolality Calculated 283 mOsm/kg (285-295); Potassium 3.9 mmol/L (3.5-5.1); Sodium 137 mmol/L (136-145); Total Bilirubin 0.4 mg/dL (0.15-1.2); Total Protein 8.2 g/dL (6.6-8.7)
[2024-03-19] MEDS: diphenhydrAMINE 50 mg/mL SDV 1mL IVP (12:05)
[2024-03-19] MEDS: metoclopramide 5 mg/mL SDV 2 mL 10 MG IVP (12:06)
[2024-03-19] MEDS: ketorolac 30 mg/mL INJ IVP (12:06)
[2024-03-19] MEDS: ondansetron 2 mg/ML SDV 2 mL 4 MG IVP (13:12)
== END 2024-03-19 14:15 | disposition home or self-care (01) ==
PROVIDERS: Emergency Provider Emergency Medicine
DX: R51.9 Headache, unspecified (principal)
CPT/HCPCS: 36415; 70450; 80053; 85025; 96374; 96375; 99285; J1200; J1885; J2270; J2405; J2765

== ENCOUNTER 2024-08-22 14:02 | Emergency (ER) | payer MEDICAID, SELFPAY ==
[2024-08-22] VITALS (10 sets, daily range): BP systolic 111–138; BP diastolic 72–100; PULSE 46–118; RESP 13–25; TEMP 36.6; O2SAT 91–99; BMI 21.2
--- NOTE | 2024-08-22 14:05 | ED_ITS ---
Documented by User: Venu Anderson DO 08/22/24 14:23 HPI - Abdominal Pain 2 General: Chief Complaint: Abdominal Pain Stated Complaint: lower abdominal pain Time Seen by Provider: 08/22/24 14:04 History of Present Illness: 24-year-old female presents emergency ro om COVID any sudden onset of severe or abdominal pain. Patient is approximately 5 weeks gestation based on her LMP she had a positive test at the [facility] she has not had any initial OB evaluation or ultrasounds. No recent fever sweats chills no vaginal bleeding noted dysuria urgency or frequency. Associated Symptoms: Denies chills, dysuria and fever(s) Related Data Home Medications ?Medication ?Instructions ?Recorded ?Confirmed acetaminophen 500 mg tablet 1,000 mg PO Q6H PRN Pain 0 06/10/23 08/22/24 ibuprofen 200 mg capsule 800 mg PO Q6H PRN Pain 06/0908/22/24 Previous Rx's ?Medication ?Instructions ?Recorded ferrous sulfate 325 mg (65 mg 325 mg PO DAILY #30 tabs 05/30/21 iron) tablet,delayed release hydrocodone 5 mg-acetaminophen 325 1 tab PO Q6H PRN pa in #12 tabs 08/22/24 mg tablet Allergies Allergy/AdvReac Type Severity Reaction Status Date / Time No Known Allergies Allergy Verified 05/18/24 14:50 Review of Systems 2 Const: Denies: fever(s) or chills Card: Denies: chest pain Resp: Denies: dyspnea GI: Reports: abdominal pain : Denies: dysuria, urinary frequency, urinary urgency, vaginal bleeding or vaginal discharge Musc: Denies: neck pain or back pain Skin/Breast: Denies: rash PFSH ED 2 PFSH: Family History Father Diabetes Hypertension Grandmother Hypertension Grandfather Diabetes Denies family history of Colon cancer Ovarian cancer Prostate cancer Heart disease Hyperlipidemia Breast cancer Uterine cancer Thyroid disease Stroke Social History Smoking and tobacco/nicotine status: former use of tobacco/nicotine Physical Exam 2 Const: GENERAL APPEARANCE: cooperative ORIENTATION/CONSCIOUSNESS: Yes awake, Yes oriented to person, Yes oriented to place and Yes oriented to time HENMT: COMMON NORMALS: normocephalic, atraumatic and hearing grossly normal bilaterally HEAD & SCALP: normocephalic and atraumatic Resp: COMMON NORMALS: normal respiratory effort, No retractions, No use of accessory muscles and clear to auscultation bilaterally AUSCULTATION: clear to auscultation bilaterally Cardio: COMMON NORMALS: regular rate, regular rhythm and No murmurs present (Cardio) RATE: regular rate RHYTHM: regular rhythm GI: PALPATION: Yes Tenderness to palpation present (GI) Details: RLQ, Yes Guarding due to palpation present (GI) and Yes Rigid due to palpation Extremity: COMMON NORMALS: normal to inspection, capillary refill normal, no clubbing, cyanosis or edema, no calf tenderness and no pedal edema Neuro: SENSORIUM/ORIENTATION: Yes oriented to person, Yes oriented to place and Yes oriented to time Skin: COMMON NORMALS: no rashes or lesions noted GENERAL SKIN EXAM: no rashes or lesions noted Course 2 Vital Signs: Vital signs: Vital Signs Temperature 97.9 F 08/22/24 14:07 Pulse Rate 46 L 08/22/24 18:00 Respiratory Rate 18 08/22/24 18:00 Blood Pressure 114/81 08/22/24 18:00 Pulse Oximetry 97 08/22/24 18:00 Oxygen Delivery Me thod Room Air 08/22/24 14:07 MDM - Abdominal Pain Lab Data 08/22/24 14:08 08/22/24 14:13 Labs/Radiology: Radiology Impressions Obstetrics Ultrasound 08/22/24 14:40 IMPRESSION: 1. No visible intrauterine gestational sac. In the setting of positive beta hCG, the differential diagnosis of this finding includes early intrauterine gestation, ectopic , and completed spontaneous . No ectopic is visible. Recommend continued follow-up beta hCG and repeat ultrasound if necessary for confirmation. 2. Trace right adnexal and posterior cul-de-sac free fluid of unknown clinical significance. 3. 2.6 cm dominant follicle and 2 cm corpus luteum in the right ovary. Left ovary is not evaluated. Renal Ultrasound 08/22/24 18:34 IMPRESSION: 1. Mild asymmetric right caliectasis without mychal hydronephrosis. Possible ureteral compression. 2. Small volume intraperitoneal free fluid of unknown significance. Laboratory Results WBC 9.15 10^3/uL (3.29-11.43) 08/22/24 14:08 RBC 4.90 10^6/uL (3.85-5.65) 08/22/24 14:08 Hgb 13.40 g/dL (11.27-16.99) 08/22/24 14:08 Hct 41.2 % (36-47) 08/22/24 14:08 MCV 84.1 fl (85-98) L 08/22/24 14:08 MCH 27.3 pg (27-33) 08/22/24 14:08 MCHC 32.5 g/dL (30-55) 08/22/24 14:08 RDW 12.6 % (12.1-15.1) 08/22/24 14:08 Plt Count 255 10^3/cmm (157-399) 08/22/24 14:08 MPV 10.4 fL (7.4-10.4) 08/22/24 14:08 Neut % (Auto) 56.1 % 08/22/24 14:08 Lymph % (Auto) 31.9 % 08/22/24 14:08 Wells % (Auto) 8.7 % 08/22/24 14:08 Eos % (Auto) 2.6 % 08/22/24 14:08 Baso % (Auto) 0.4 % 08/22/24 14:08 Neut # (Auto) 5.12 10^3/uL (1.8-7.7) 08/22/24 14:08 Lymph # (Auto) 2.9 10^3/uL (0.8-4.8) 08/22/24 14:08 Wells # (Auto) 0.8 10^3/uL (0.2-0.9) 08/22/24 14:08 Eos # (Auto) 0.2 10^3/uL (0.0-0.8) 08/22/24 14:08 Baso # (Auto) 0.0 10^3/uL (0.0-0.1) 08/22/24 14:08 Nucleated RBC % (auto) 0 % 08/22/24 14:08 Nucleated RBCs # 0.0 /100WBC 08/22/24 14:08 Sodium 136 mmol/L (136-145) 08/22/24 14:13 Potassium 3.8 mmol/L (3.5-5.1) 08/22/24 14:13 Chloride 101 mmol/L (98-107) 08/22/24 14:13 Carbon Dioxide 24 mmol/L (22-29) 08/22/24 14:13 Anion Gap 14.8 (5-19) 08/22/24 14:13 BUN 12 mg/dL (6-20) 08/22/24 14:13 Creatinine 0.7 mg/dL (0.5-0.9) 08/22/24 14:13 GFR Calculation 103.7 mL/min (90-130) 08/22/24 14:13 Glucose 83 mg/dL (65-115) 08/22/24 14:13 Calculated Osmolality 281 mOsm/kg (285-295) L 08/22/24 14:13 Calcium 9.2 mg/dL (8.5-10.5) 08/22/24 14:13 Total Bilirubin 0.4 mg/dL (0.15-1.2) 08/22/24 14:13 AST 13 U/L (0-32) 08/22/24 14:13 ALT 9 U/L (0-33) 08/22/24 14:13 Alkaline Phosphatase 58 U/L (35-105) 08/22/24 14:13 Total Protein 7.3 g/dL (6.6-8.7) 08/22/24 14:13 Albumin 4.4 g/dL (3.5-5.2) 08/22/24 14:13 Globulin 2.9 g/dL (1.3-4.6) 08/22/24 14:13 Ser , Semi-Qnt 2227.00 mIU/mL 08/22/24 14:13 Urine Color Yellow (Yellow) 08/22/24 14:28 Urine Appearance Clear (CLEAR) 08/22/24 14:28 Urine pH 5.5 (5-7) 08/22/24 14:28 Ur Specific [place] 1.028 (1.005-1.030) 08/22/24 14: Urine Protein Trace (Negative) A 08/22/24 14:28 Urine Glucose (UA) Negative (Normal) 08/22/24 14:28 Urine Ketones Trace (Negative) 08/22/24 14: Urine Blood 2+ (Negative) A 08/22/24 14: Urine Nitrate Negative (Negative) 08/22/24 14:28 Urine Bilirubin Negative (Negative) 08/22/24 14:28 Urine Urobilinogen 1.0 mg/dL (Negative) 08/22/24 14:28 Ur Leukocyte Esterase Negative (Negative) 08/22/24 14:28 Urine RBC 21-50 /hpf (0-2) H 08/22/24 14:28 Urine WBC 0-5 /hpf (0-5) 08/22/24 14:28 Ur Squamous Epith Cells 0-5 /hpf (0-5) 08/22/24 14:28 Amorphous Sediment Not Reportable 08/22/24 14:28 Urine Bacteria None seen /hpf (NONE) 08/22/24 14:28 Hyaline Casts 0.40 /lpf 08/22/24 14:28 Urine Mucus 1+ /hpf 08/22/24 14:28 Blood Type B Positive 08/22/24 14:13 Rho(D) Type Rh positive 08/22/24 14:13 Antibody Screen Negative 08/22/24 14:13 Crossmatch See Detail 08/22/24 14:13 Discharge Plan Discharge Patient Disposition: Home Clinical Impression: Pelvic pain, First trimester Condition: Stable Prescriptions: New hydrocodone-acetaminophen 5-325 mg tablet 1 tab PO Q6H PRN (Reason: pain) Qty: 12 0RF No Action ibuprofen 200 mg Capsule 800 mg PO Q6H PRN (Reason: Pain) acetaminophen 500 mg Tablet 1,000 mg PO Q6H PRN (Reason: Pain) ferrous sulfate 325 mg (65 mg iron) tablet,delayed release (DR/EC) 325 mg PO DAILY Qty: 30 0RF Discharge Orders: Discharge ED (Routine); Ordered 08/22/24 Ordered By: Venu Anderson Discharge Diet: Usual diet Discharge Activity: Limit activity as instructed Patient Instructions: Opioid Safety, Pain Management Activity Restrictions/Additional Instructions: Thank you for choosing [facility] for your healthcare needs today. It is very important that you follow up as instructed or that you return to the Emergency Department should you have concerns or if your condition changes or worsens in any way. You were seen in the emergency room with pelvic pain. Your beta-hCG is at 2227. There was some fluid seen on the right side of the pelvis. There is no pole or gestational sac noted on the ultrasound. Obstetrics on-call seen you in the emergency room recommended observation, you preferred to go home. You should return to have a repeat beta-hCG in 24 hours around 2 to 3:00 in the afternoon tomorrow. If you have uncontrolled pain or develop severe vaginal bleeding return to the emergency room Print Language: Belarusian Coding Level of Care Code ED Maintenance Associate for Christopherg Fwd Documented by User: Rosas Cifuentes DO 08/22/24 19:46 HPI - Abdominal Pain 2 General: Chief Complaint: Abdominal Pain Stated Complaint: lower abdominal pain Time Seen by Provider: 08/22/24 14:04 Related Data Home Medications ?Medication ?Instructions ?Recorded ?Confirmed acetaminophen 500 mg tablet 1,000 mg PO Q6H PRN Pain 0 06/10/23 08/22/24 ibuprofen 200 mg capsule 800 mg PO Q6H PRN Pain 06/0908/22/24 Previous Rx's ?Medication ?Instructions ?Recorded ferrous sulfate 325 mg (65 mg 325 mg PO DAILY #30 tabs 05/30/21 iron) tablet,delayed release hydrocodone 5 mg-acetaminophen 325 1 tab PO Q6H PRN pa in #12 tabs 08/22/24 mg tablet Allergies Allergy/AdvReac Type Severity Reaction Status Date / Time No Known Allergies Allergy Verified 05/18/24 14:50 PFSH ED 2 PFSH: Family History Father Diabetes Hypertension Grandmother Hypertension Grandfather Diabetes Denies family history of Colon cancer Ovarian cancer Prostate cancer Heart disease Hyperlipidemia Breast cancer Uterine cancer Thyroid disease Stroke Social History Smoking and tobacco/nicotine status: former use of tobacco/nicotine Course 2 Vital Signs: Vital signs: Vital Signs Temperature 97.9 F 08/22/24 14:07 Pulse Rate 46 L 08/22/24 18:00 Respiratory Rate 18 08/22/24 18:00 Blood Pressure 114/81 08/22/24 18:00 Pulse Oximetry 97 08/22/24 18:00 Oxygen Delivery Me thod Room Air 08/22/24 14:07 MDM - Abdominal Pain Medical Decision Making 24-year-old female checked out to me by Dr. Posey. This young lady has a serum quant of 2200, but no gestational sac visible on ultrasound. She has some trace right adnexal cul-de-sac fluid of unknown significance. This could be an early ectopic versus ruptured ovarian cyst. Her pain is more controlled now. She was seen by gynecology in the ER. She was offered observation, for recheck of labs in the morning, pain control, etc. She is declining, she has a 3-year-old at home. She was instructed by gynecology to return tomorrow at a similar time, around 2 PM, for repeat serum quantitative testing. Gynecology will be contacted at that point with the result. As she had some hematuria, renal ultrasound was performed, and there is no hydronephrosis. There is perhaps mild caliectasis on the right, but this is nondiagnostic. She will return for worsening symptoms, especially pain. Lab Data 08/22/24 14:08 08/22/24 14:13 Labs/Radiology: Radiology Impressions Obstetrics Ultrasound 08/22/24 14:40 IMPRESSION: 1. No visible intrauterine gestational sac. In the setting of positive beta hCG, the differential diagnosis of this finding includes early intrauterine gestation, ectopic , and completed spontaneous . No ectopic is visible. Recommend continued follow-up beta hCG and repeat ultrasound if necessary for confirmation. 2. Trace right adnexal and posterior cul-de-sac free fluid of unknown clinical significance. 3. 2.6 cm dominant follicle and 2 cm corpus luteum in the right ovary. Left ovary is not evaluated. Renal Ultrasound 08/22/24 18:34 IMPRESSION: 1. Mild asymmetric right caliectasis without mychal hydronephrosis. Possible ureteral compression. 2. Small volume intraperitoneal free fluid of unknown significance. Laboratory Results WBC 9.15 10^3/uL (3.29-11.43) 08/22/24 14:08 RBC 4.90 10^6/uL (3.85-5.65) 08/22/24 14:08 Hgb 13.40 g/dL (11.27-16.99) 08/22/24 14:08 Hct 41.2 % (36-47) 08/22/24 14:08 MCV 84.1 fl (85-98) L 08/22/24 14:08 MCH 27.3 pg (27-33) 08/22/24 14:08 MCHC 32.5 g/dL (30-55) 08/22/24 14:08 RDW 12.6 % (12.1-15.1) 08/22/24 14:08 Plt Count 255 10^3/cmm (157-399) 08/22/24 14:08 MPV 10.4 fL (7.4-10.4) 08/22/24 14:08 Neut % (Auto) 56.1 % 08/22/24 14:08 Lymph % (Auto) 31.9 % 08/22/24 14:08 Wells % (Auto) 8.7 % 08/22/24 14:08 Eos % (Auto) 2.6 % 08/22/24 14:08 Baso % (Auto) 0.4 % 08/22/24 14:08 Neut # (Auto) 5.12 10^3/uL (1.8-7.7) 08/22/24 14:08 Lymph # (Auto) 2.9 10^3/uL (0.8-4.8) 08/22/24 14:08 Wells # (Auto) 0.8 10^3/uL (0.2-0.9) 08/22/24 14:08 Eos # (Auto) 0.2 10^3/uL (0.0-0.8) 08/22/24 14:08 Baso # (Auto) 0.0 10^3/uL (0.0-0.1) 08/22/24 14:08 Nucleated RBC % (auto) 0 % 08/22/24 14:08 Nucleated RBCs # 0.0 /100WBC 08/22/24 14:08 Sodium 136 mmol/L (136-145) 08/22/24 14:13 Potassium 3.8 mmol/L (3.5-5.1) 08/22/24 14:13 Chloride 101 mmol/L (98-107) 08/22/24 14:13 Carbon Dioxide 24 mmol/L (22-29) 08/22/24 14:13 Anion Gap 14.8 (5-19) 08/22/24 14:13 BUN 12 mg/dL (6-20) 08/22/24 14:13 Creatinine 0.7 mg/dL (0.5-0.9) 08/22/24 14:13 GFR Calculation 103.7 mL/min (90-130) 08/22/24 14:13 Glucose 83 mg/dL (65-115) 08/22/24 14:13 Calculated Osmolality 281 mOsm/kg (285-295) L 08/22/24 14:13 Calcium 9.2 mg/dL (8.5-10.5) 08/22/24 14:13 Total Bilirubin 0.4 mg/dL (0.15-1.2) 08/22/24 14:13 AST 13 U/L (0-32) 08/22/24 14:13 ALT 9 U/L (0-33) 08/22/24 14:13 Alkaline Phosphatase 58 U/L (35-105) 08/22/24 14:13 Total Protein 7.3 g/dL (6.6-8.7) 08/22/24 14:13 Albumin 4.4 g/dL (3.5-5.2) 08/22/24 14:13 Globulin 2.9 g/dL (1.3-4.6) 08/22/24 14:13 Ser , Semi-Qnt 2227.00 mIU/mL 08/22/24 14:13 Urine Color Yellow (Yellow) 08/22/24 14:28 Urine Appearance Clear (CLEAR) 08/22/24 14:28 Urine pH 5.5 (5-7) 08/22/24 14:28 Ur Specific [place] 1.028 (1.005-1.030) 08/22/24 14:28 Urine Protein Trace (Negative) A 08/22/24 14:28 Urine Glucose (UA) Negative (Normal) 08/22/24 14: Urine Ketones Trace (Negative) 08/22/24 14: Urine Blood 2+ (Negative) A 08/22/24 14: Urine Nitrate Negative (Negative) 08/22/24 14: Urine Bilirubin Negative (Negative) 08/22/24 14: Urine Urobilinogen 1.0 mg/dL (Negative) 08/22/24 14:28 Ur Leukocyte Esterase Negative (Negative) 08/22/24 14:28 Urine RBC 21-50 /hpf (0-2) H 08/22/24 14:28 Urine WBC 0-5 /hpf (0-5) 08/22/24 14:28 Ur Squamous Epith Cells 0-5 /hpf (0-5) 08/22/24 14:28 Amorphous Sediment Not Reportable 08/22/24 14:28 Urine Bacteria None seen /hpf (NONE) 08/22/24 14:28 Hyaline Casts 0.40 /lpf 08/22/24 14:28 Urine Mucus 1+ /hpf 08/22/24 14:28 Blood Type B Positive 08/22/24 14:13 Rho(D) Type Rh positive 08/22/24 14:13 Antibody Screen Negative 08/22/24 14:13 Crossmatch See Detail 08/22/24 14:13 All radiology interpretation(s) finalized by discharge Discharge Plan Discharge Patient Disposition: Home Clinical Impression: Pelvic pain, First trimester Condition: Stable Prescriptions: New hydrocodone-acetaminophen 5-325 mg tablet 1 tab PO Q6H PRN (Reason: pain) Qty: 12 0RF No Action ibuprofen 200 mg Capsule 800 mg PO Q6H PRN (Reason: Pain) acetaminophen 500 mg Tablet 1,000 mg PO Q6H PRN (Reason: Pain) ferrous sulfate 325 mg (65 mg iron) tablet,delayed release (DR/EC) 325 mg PO DAILY Qty: 30 0RF Discharge Orders: Discharge ED (Routine); Ordered 08/22/24 Ordered By: Venu Anderson Discharge Diet: Usual diet Discharge Activity: Limit activity as instructed Patient Instructions: Opioid Safety, Pain Management Activity Restrictions/Additional Instructions: Thank you for choosing [facility] for your healthcare needs today. It is very important that you follow up as instructed or that you return to the Emergency Department should you have concerns or if your condition changes or worsens in any way. You were seen in the emergency room with pelvic pain. Your beta-hCG is at 2227. There was some fluid seen on the right side of the pelvis. There is no pole or gestational sac noted on the ultrasound. Obstetrics on-call seen you in the emergency room recommended observation, you preferred to go home. You should return to have a repeat beta-hCG in 24 hours around 2 to 3:00 in the afternoon tomorrow. If you have uncontrolled pain or develop severe vaginal bleeding return to the emergency room Print Language: Belarusian Coding Level of Care Code ED Maintenance Associate for Anthony Abad
[2024-08-22 14:21] LABS: Basophils % 0.4 %; Eosinophils # 0.2 10^3/uL (0.0-0.8); Eosinophils % 2.6 %; Hematocrit 41.2 % (36-47); Lymphocytes # 2.9 10^3/uL (0.8-4.8); Lymphocytes % 31.9 %; Mean Corpuscular HGB Conc 32.5 g/dL (30-55); Mean Corpuscular Hemoglobin 27.3 pg (27-33); Mean Corpuscular Volume 84.1 fl (85-98); Mean Platelet Volume 10.4 fL (7.4-10.4); Monocytes # 0.8 10^3/uL (0.2-0.9); Monocytes % 8.7 %; Neutrophils # 5.12 10^3/uL (1.8-7.7); Neutrophils % 56.1 %; Nucleated Red Blood Cells % 0 %; Platelet Count 255 10^3/cmm (157-399); Red Cell Distribution Width 12.6 % (12.1-15.1); White Blood Count 9.15 10^3/uL (3.29-11.43)
[2024-08-22] MEDS: morphine 4 mg/mL SDV 1 mL IVP ×2 (14:25→14:33)
[2024-08-22] MEDS: ondansetron 2 mg/ML SDV 2 mL 4 MG IVP (14:25)
[2024-08-22] MEDS: sodium chloride 0.9% 1,000 ML 999 ML IV (14:26)
[2024-08-22 14:32] LABS: Bilirubin Urine Negative (Negative); Blood Urine 2+ (Negative); Glucose Urine UA Negative (Normal); Ketones Urine Trace (Negative); Leukocyte Esterase Urine Negative (Negative); Nitrate Urine Negative (Negative); Protein Urine Trace (Negative); Specific Gravity, Urine 1.028 (1.005-1.030); Urine Appearance Clear (CLEAR); Urine Color Yellow (Yellow); pH Urine 5.5 (5-7)
[2024-08-22 14:37] LABS: Add Urine Microscopic? YES; Bacteria Urine None Seen /hpf; RBC Urine 21-50 /hpf (0-2); Squamous Epithelial Cell Urine 0-5 /hpf (0-5); WBC Urine 0-5 /hpf (0-5)
--- NOTE | 2024-08-22 14:40 | USR_ITS ---
PROCEDURE INFORMATION: Exam: US , Transvaginal and US Duplex Artery or Vein, Ovaries, Limited Exam date and time: 08/22/2024 3:17 PM Clinical indication: complicated by abdominal or pelvic pain; Right lower quadrant; First trimester (<14 weeks 0 days); Gestational age or lmp: 5w0d; Prior surgery; Surgery date: 6+ months; Surgery type: Patient says three years ago she had cervix repaired; Additional info: Suspect ectopic ruptured TECHNIQUE: Imaging protocol: Real-time transvaginal obstetrical ultrasound of the maternal pelvis and a first trimester with image documentation. Transvaginal imaging was used for better evaluation of the fetus, adnexa, and/or cervix. Real-time duplex ultrasound scan of the arterial or venous flow of the ovaries with B-mode, color Doppler flow and spectral waveform analysis, Limited Duplex. Duplex exam was performed to evaluate for torsion and other vascular conditions. COMPARISON: No relevant prior studies available. FINDINGS: GESTATION: Gestation: No intrauterine gestational sac. heart rate: Not detected Placenta: Not applicable Amniotic fluid (Qualitative): Not applicable BIOMETRY: Gestational age (AUA): Not applicable MATERNAL: Uterus: Uterus is anteverted. Uterine contours are normal. The endometrium is homogenous. Endometrial stripe thickness measures 7 mm. The uterus measures 8.8 x 4.6 x 4.6 cm. Cervix: Cervical length measures 3 cm. Cervix is closed. Right ovary/adnexa: The right ovary measures 4.7 x 4.2 x 2.7 cm for a volume of 28 cc. The right ovary contains a 2.6 cm dominant follicle. The right ovary also contains a 2 cm thick walled corpus luteum. There is trace free fluid in the right adnexa. Left ovary/adnexa: The left ovary is not evaluated. Intraperitoneal space: Trace free fluid in the posterior cul-de-sac. Vasculature: There is normal color Doppler signal and normal venous spectral Doppler waveforms in the right ovary. US/US OB <=14 wk fetus w transvag IMPRESSION: 1. No visible intrauterine gestational sac. In the setting of positive beta hCG, the differential diagnosis of this finding includes early intrauterine gestation, ectopic , and completed spontaneous . No ectopic is visible. Recommend continued follow-up beta hCG and repeat ultrasound if necessary for confirmation. 2. Trace right adnexal and posterior cul-de-sac free fluid of unknown clinical significance. 3. 2.6 cm dominant follicle and 2 cm corpus luteum in the right ovary. Left ovary is not evaluated.
[2024-08-22 14:48] LABS: Alanine Aminotransferase 9 U/L (0-33); Albumin Level 4.4 g/dL (3.5-5.2); Alkaline Phosphatase 58 U/L (35-105); Anion Gap 14.8 (5-19); Aspartate Amino Transferase 13 U/L (0-32); Blood Urea Nitrogen 12 mg/dL (6-20); Calcium 9.2 mg/dL (8.5-10.5); Carbon Dioxide 24 mmol/L (22-29); Chloride 101 mmol/L (98-107); Globulin 2.9 g/dL (1.3-4.6); Glomerular Filtration Rate 103.7 mL/min (90-130); Glucose 83 mg/dL (65-115); Osmolality Calculated 281 mOsm/kg (285-295); Potassium 3.8 mmol/L (3.5-5.1); Sodium 136 mmol/L (136-145); Total Bilirubin 0.4 mg/dL (0.15-1.2); Total Protein 7.3 g/dL (6.6-8.7)
[2024-08-22 14:51] LABS: UA Slide Review UA Slide Review Perf
[2024-08-22 14:52] LABS: Add Urine Culture? Yes; Mucus Urine 1+ /hpf
[2024-08-22] MEDS: HYDROmorphone 0.5 MG/0.5 ML INJ IVP ×2 (14:53→15:33)
--- NOTE | 2024-08-22 17:56 | PM.OBGYCN ---
Providers/Reason for Consult Consulting Physican/Specialty*: Sonya Bravo DO/CONTROLLER REPAIRER AND TESTER Reason for Consult*: Positive test with right sided pelvic pain. Primary CONTROLLER REPAIRER AND TESTER: Dr. Jostin Acharya CONTROLLER REPAIRER AND TESTER Consult HPI History of Present Illness Siobhan Alva is a 24 year old female -0-4-1 with unsure LMP possibly 07/15/2024. Patient presented to the emergency room with complaints of right sided pelvic pain onset this afternoon and history of a positive test confirmed at the health department of approximately 5 weeks by LMP, patient denies any vaginal bleeding. Transvaginal ultrasound report reviewed with no evidence of IUP or ectopic . The right ovary demonstrates a corpus luteal cyst as well as a dominant follicle. Small amount of fluid noted. Quantitative hCG?7. Pelvic exam?moderate right lower quadrant pain with guarding. Discussion of ovarian cyst which may cause pelvic pain but with the severity of her pain and a positive test an early ectopic cannot be ruled out. I recommend repeating the quantitative hCG in 24 hours. A decrease in titer would indicate a probable ectopic versus an increase in titer would lean more toward a possible early intrauterine . I recommended hospital observation to watch her closely and repeat labs in the morning but patient would rather go home for she has a 3-year-old to care for. I questioned her regarding transportation in order to return to the hospital tomorrow afternoon for repeat lab. I encouraged her to return to the hospital if her pain increases beyond controlled with Tylenol. Patient verbalizes understanding and agrees with this plan. Medications/Allergies Home Medications ?Medication ?Instructions ?Recorded ?Confirmed ?Last Taken ?Type ferrous sulfate 325 mg (65 mg 325 mg PO DAILY #30 tabs 05/30/21 08/22/24 03/18/24 Rx iron) tablet,delayed release acetaminophen 500 mg tablet 1,000 mg PO Q6H PRN Pain 06/10/23 08/22/24 Unknown History ibuprofen 200 mg capsule 800 mg PO Q6H PRN Pain 06/10/23 08/22/24 Unknown History Allergies Allergy/AdvReac Type Severity Reaction Status Date / Time No Known Allergies Allergy Verified 05/18/24 14:50 PFSH CONTROLLER REPAIRER AND TESTER PFSH: Family History Father Diabetes Hypertension Grandmother Hypertension Grandfather Diabetes Denies family history of Colon cancer Ovarian cancer Prostate cancer Heart disease Hyperlipidemia Breast cancer Uterine cancer Thyroid disease Stroke Social History Smoking and tobacco/nicotine status: former use of tobacco/nicotine Vitals/I&O/Wt Last Vital Signs Temp 97.9 F 08/22/24 14:07 Pulse 68 08/22/24 16:30 Resp 20 H 08/22/24 16:30 BP 111/72 08/22/24 16:30 Pulse Ox 96 08/22/24 16:30 O2 Del Method Room Air 08/22/24 14:07 08/22/24 08/22/24 08/22/24 06:59 14:59 22:59 Intake Total 480 / 480 1000 / 1480 Balance 480 / 480 1000 / 1480 Weight last 48 hrs Weight 63.503 kg Data 08/22/24 14:08 08/22/24 14:13 A&P Assessment and plan (1) Pelvic pain: DC patient from emergency room. Patient to return to the ER tomorrow afternoon for repeat lab. 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
--- NOTE | 2024-08-22 18:34 | USR_ITS ---
PROCEDURE INFORMATION: Exam: US Retroperitoneal, Complete, Kidneys and Bladder Exam date and time: 08/22/2024 6:50 PM Age: 24 years old Clinical indication: Abdominal pain; Generalized; ; Additional info: Hematuria pain TECHNIQUE: Imaging protocol: Real-time ultrasound of the retroperitoneum with image documentation. Complete exam focused on the bilateral kidneys and urinary bladder. COMPARISON: US OB <=14 wk fetus w transvag 08/22/2024 3:17 PM FINDINGS: Right kidney: The right kidney is morphologically normal. Cortical thickness and echotexture is normal. There is mild caliectasis. No visible stones. The right kidney measures 9.5 cm in length. Left kidney: The left kidney is unremarkable. Cortical thickness and echotexture is normal. There is no hydronephrosis. No visible stones. The left kidney measures 9 cm in length. Urinary bladder: The urinary bladder is unremarkable. Intraperitoneal space: There is a small volume of intraperitoneal free fluid anterior to the uterus. US/US renal BI* [id number] IMPRESSION: 1. Mild asymmetric right caliectasis without mychal hydronephrosis. Possible ureteral compression. 2. Small volume intraperitoneal free fluid of unknown significance.
[2024-08-22] MEDS: HYDROcodone-acetaminophen 10-325 mg Tablet 2 TAB PO (20:17)
== END 2024-08-22 20:21 | disposition home or self-care (01) ==
PROVIDERS: Family Medicine; Emergency Provider Emergency Medicine
DX: O26.899 Other specified pregnancy related conditions, unspecified trimester (principal); R10.2 Pelvic and perineal pain; Z87.891 Personal history of nicotine dependence
CPT/HCPCS: 36415; 76770; 76801; 76817; 80053; 81001; 84702; 85025; 86850; 86900; 86920; 87086; 96361; 96374; 96375; 96376; 99284; J1171; J2270; J2405; J7030; J9999

== ENCOUNTER 2024-08-23 14:45 | Observation (INO) | payer MEDICAID, SELFPAY ==
[2024-08-23] VITALS (21 sets, daily range): BP systolic 101–131; BP diastolic 61–90; PULSE 49–89; RESP 12–18; TEMP 36.1–36.9; O2SAT 96–100
--- NOTE | 2024-08-23 15:26 | W.ED.ABDPA2 ---
HPI - Abdominal Pain General: Chief Complaint: Abdominal Pain Stated Complaint: abd pain, 5 weeks preg Time Seen by Provider: 08/23/24 15:07 History of Present Illness: Patient is a 24-year-old female , LMP 07/18/24 presents to the ED for the second time in 24 hours with hCG recheck. Patient was seen here yesterday with right lower quadrant abdominal pain, which was noted to have follicular cyst, free fluid, and seen by OB, which hCG of 2200, however no FHT/ material noted, therefore patient was asked to come back today for repeat. She states she has the ongoing right lower quadrant pain that she rates as a 3. Associated Symptoms: Reports nausea; Denies chills, fever(s) and vomiting Related Data Home Medications ?Medication ?Instructions ?Recorded ?Confirmed acetaminophen 500 mg tablet 1,000 mg PO Q6H PRN Pain 06/10/23 08/23/24 ibuprofen 200 mg capsule 800 mg PO Q6H PRN Pain 06/10/23 08/23/24 Previous Rx's ?Medication ?Instructions ?Recorded ferrous sulfate 325 mg (65 mg 325 mg PO DAILY #30 tabs 05/30/21 iron) tablet,delayed release hydrocodone 5 mg-acetaminophen 325 1 tab PO Q6H PRN pain #12 tabs 08/22/24 mg tablet Allergies Allergy/AdvReac Type Severity Reaction Status Date / Time No Known Allergies Allergy Verified 08/23/24 15:14 Review of Systems Const: Reports: fatigue; Denies: fever(s) or chills Eyes: Denies: change in vision or blurry vision Card: Denies: chest pain or palpitations Resp: Denies: dyspnea or productive cough GI: Reports: abdominal pain and nausea; Denies: vomiting : Denies: flank pain or difficulty voiding Musc: Denies: neck pain, back pain or extremity pain Neuro: Denies: headache(s) or numbness in extremities Psych: Denies: anxiety or depression PFSH ED PFSH: Family History Father Diabetes Hypertension Grandmother Hypertension Grandfather Diabetes Denies family history of Colon cancer Ovarian cancer Prostate cancer Heart disease Hyperlipidemia Breast cancer Uterine cancer Thyroid disease Stroke Social History Smoking and tobacco/nicotine status: former use of tobacco/nicotine Physical Exam Const: COMMON NORMALS: no acute distress, average body habitus and patient oriented x3 HENMT: COMMON NORMALS: normocephalic and atraumatic HEAD & SCALP: normocephalic and atraumatic Neck/C-Spine: COMMON NORMALS: full ROM and no lymphadenopathy Lymph: LYMPHATIC: no lymphadenopathy noted Chest: COMMONS NORMALS: normal inspection of the chest Resp: COMMON NORMALS: normal respiratory effort and clear to auscultation bilaterally AUSCULTATION: clear to auscultation bilaterally Cardio: COMMON NORMALS: regular rate and regular rhythm RATE: regular rate RHYTHM: regular rhythm GI: COMMON NORMALS: Normal to inspection, nondistended, normoactive bowel sounds present, Soft to palpation and non-tender PALPATION: Yes Soft to palpation : COMMON NORMALS: Yes no CVA tenderness BLADDER/KIDNEY EXAM: Yes no CVA tenderness Back/Pelvis: COMMON NORMALS: no CVA tenderness Extremity: COMMON NORMALS: normal to inspection, full ROM and capillary refill normal Neuro: COMMON NORMALS: patient oriented x3 Psych: COMMON NORMALS: mental status grossly normal Course Reevaluation(s): Reevaluation #1: Continues to have pain right lower quadrant, now rates at a 5. Reevaluation #2: Patient had bleeding post ultrasound Consultations: Consultation #1: Dr. Bravo discussed with Dr. Cifuentes. Patient is to call the clinic in the a.m. to make an appointment with Dr. Acharya for hCG follow-up/repeat tomorrow. Consultation #2: Discussed with Dr. Bravo after repeat ultrasound came back as a topic . Patient will be taken to the OR tonight and admitted. Last consumed food/fluid: Early this a.m. approximately 10 AM Vital Signs: Vital signs: Vital Signs Temperature 97.3 F L 08/23/24 23:19 Pulse Rate 69 08/23/24 23:19 Respiratory Rate 17 08/23/24 23:19 Blood Pressure 122/82 08/23/24 23:19 Pulse Oximetry 97 08/23/24 23:19 Oxygen Delivery Me thod Room Air 08/23/24 23:19 MDM - Abdominal Pain Medical Decision Making Patient is a 24-year-old female with early , severe pain noted yesterday, with free fluid, right follicular cyst, which is where patient is complaining. Will repeat ultrasound given her worsening pain, treat her pain, and have her follow-up with OB. I did discuss with patient that since her hCG has decreased today, this is most likely threatened , nonviable . Patient/myself also discussed close follow-up and following of hCG Lab Data 08/23/24 15:15 08/23/24 15:15 Labs/Radiology: Radiology Impressions Obstetrics Ultrasound 08/23/24 16:11 IMPRESSION: 1. The endometrium is normal in thickness measuring 7 mm with no intrauterine identified. 2. There is a thick walled cystic mass in the right adnexa measuring 1.9 x 1.7 cm with peripheral vascular flow. This is concerning for an ectopic . 3. Small amount free simple fluid in the cul-de-sac and left adnexa. ADDENDUM: 08/23/241947 THIS REPORT CONTAINS FINDINGS THAT MAY BE CRITICAL TO PATIENT CARE. The findings were verbally communicated via telephone conference with Kelsi Ramsey at 7:48 PM CDT on 08/23/2024. The findings were acknowledged and understood. Laboratory Results WBC 5.94 10^3/uL (3.29-11.43) 08/23/24 15:15 RBC 4.18 10^6/uL (3.85-5.65) 08/23/24 15:15 Hgb 11.60 g/dL (11.27-16.99) 08/23/24 15:15 Hct 35.5 % (36-47) L 08/23/24 15:15 MCV 84.9 fl (85-98) L 08/23/24 15:15 MCH 27.8 pg (27-33) 08/23/24 15:15 MCHC 32.7 g/dL (30-55) 08/23/24 15:15 RDW 12.7 % (12.1-15.1) 08/23/24 15:15 Plt Count 178 10^3/cmm (157-399) D 08/23/24 15:15 MPV 10.5 fL (7.4-10.4) H 08/23/24 15:15 Neut % (Auto) 65.3 % 08/23/24 15:15 Lymph % (Auto) 22.6 % 08/23/24 15:15 [place] % (Auto) 7.9 % 08/23/24 15:15 Eos % (Auto) 3.4 % 08/23/24 15:15 Baso % (Auto) 0.5 % 08/23/24 15:15 Neut # (Auto) 3.88 10^3/uL (1.8-7.7) 08/23/24 15:15 Lymph # (Auto) 1.3 10^3/uL (0.8-4.8) 08/23/24 15:15 [place] # (Auto) 0.5 10^3/uL (0.2-0.9) 08/23/24 15:15 Eos # (Auto) 0.2 10^3/uL (0.0-0.8) 08/23/24 15:15 Baso # (Auto) 0.0 10^3/uL (0.0-0.1) 08/23/24 15:15 Nucleated RBC % (auto) 0 % 08/23/24 15:15 Nucleated RBCs # 0.0 /100WBC 08/23/24 15:15 Sodium 139 mmol/L (136-145) 08/23/24 15:15 Potassium 3.7 mmol/L (3.5-5.1) 08/23/24 15:15 Chloride 105 mmol/L (98-107) 08/23/24 15:15 Carbon Dioxide 25 mmol/L (22-29) 08/23/24 15:15 Anion Gap 12.7 (5-19) 08/23/24 15:15 BUN 9 mg/dL (6-20) 08/23/24 15:15 Creatinine 0.6 mg/dL (0.5-0.9) 08/23/24 15:15 GFR Calculation 123.9 mL/min (90-130) 08/23/24 15:15 Glucose 83 mg/dL (65-115) 08/23/24 15:15 Calculated Osmolality 286 mOsm/kg (285-295) 08/23/24 15:15 Calcium 8.6 mg/dL (8.5-10.5) 08/23/24 15:15 Total Bilirubin 0.2 mg/dL (0.15-1.2) 08/23/24 15:15 AST 14 U/L (0-32) 08/23/24 15:15 ALT 9 U/L (0-33) 08/23/24 15:15 Alkaline Phosphatase 56 U/L (35-105) 08/23/24 15:15 Total Protein 6.4 g/dL (6.6-8.7) L 08/23/24 15:15 Albumin 4.0 g/dL (3.5-5.2) 08/23/24 15:15 Globulin 2.4 g/dL (1.3-4.6) 08/23/24 15:15 Lipase 31 U/L (13-60) 08/23/24 15:15 Ser , Semi-Qnt 2142.00 mIU/mL 08/23/24 15:15 Urine Color Yellow (Yellow) 08/23/24 15:13 Urine Appearance Clear (CLEAR) 08/23/24 15:13 Urine pH 6.5 (5-7) 08/23/24 15:13 Ur Specific [place] 1.007 (1.005-1.030) 08/23/24 15:13 Urine Protein Negative (Negative) 08/23/24 15:13 Urine Glucose (UA) Negative (Normal) 08/23/24 15:13 Urine Ketones Negative (Negative) 08/23/24 15:13 Urine Blood 3+ (Negative) A 08/23/24 15:13 Urine Nitrate Negative (Negative) 08/23/24 15:13 Urine Bilirubin Negative (Negative) 08/23/24 15:13 Urine Urobilinogen 0.2 mg/dL (Negative) 08/23/24 15:13 Ur Leukocyte Esterase Trace (Negative) A 08/23/24 15:13 Urine RBC 0-2 /hpf (0-2) 08/23/24 15:13 Urine WBC 0-5 /hpf (0-5) 08/23/24 15:13 Ur Squamous Epith Cells 0-5 /hpf (0-5) 08/23/24 15:13 Amorphous Sediment Not Reportable 08/23/24 15:13 Urine Bacteria None seen /hpf (NONE) 08/23/24 15:13 Hyaline Casts 0-4 /lpf H 08/23/24 15:13 All radiology interpretation(s) finalized by discharge ED provider radiology interpretation(s): 08/22/24 US: 1. No visible intrauterine gestational sac. In the setting of positive beta hCG, the differential diagnosis of this finding includes early intrauterine gestation, ectopic , and completed spontaneous . No ectopic is visible. Recommend continued follow-up beta hCG and repeat ultrasound if necessary for confirmation. 2. Trace right adnexal and posterior cul-de-sac free fluid of unknown clinical significance. 3. 2.6 cm dominant follicle and 2 cm corpus luteum in the right ovary. Left ovary is not evaluated. Today: No IUP. Ectopic noted right. No sac. Blood in cul-de-sac. Discharge Plan Discharge Patient Disposition: Admitted As Inpatient Admit Provider: Sonya Bravo Clinical Impression: Ectopic , Pelvic pain, Threatened in early Condition: Stable Coding Level of Care Code ED [employer] Administrator for Anthony Abad
[2024-08-23 15:27] LABS: Basophils % 0.5 %; Eosinophils # 0.2 10^3/uL (0.0-0.8); Eosinophils % 3.4 %; Hematocrit 35.5 % (36-47); Lymphocytes # 1.3 10^3/uL (0.8-4.8); Lymphocytes % 22.6 %; Mean Corpuscular HGB Conc 32.7 g/dL (30-55); Mean Corpuscular Hemoglobin 27.8 pg (27-33); Mean Corpuscular Volume 84.9 fl (85-98); Mean Platelet Volume 10.5 fL (7.4-10.4); Monocytes # 0.5 10^3/uL (0.2-0.9); Monocytes % 7.9 %; Neutrophils # 3.88 10^3/uL (1.8-7.7); Neutrophils % 65.3 %; Nucleated Red Blood Cells % 0 %; Platelet Count 178 10^3/cmm (157-399); Red Blood Count 4.18 10^6/uL (3.85-5.65); Red Cell Distribution Width 12.7 % (12.1-15.1); White Blood Count 5.94 10^3/uL (3.29-11.43)
[2024-08-23 15:28] LABS: Bilirubin Urine Negative (Negative); Blood Urine 3+ (Negative); Glucose Urine UA Negative (Normal); Ketones Urine Negative (Negative); Leukocyte Esterase Urine Trace (Negative); Nitrate Urine Negative (Negative); Protein Urine Negative (Negative); Specific Gravity, Urine 1.007 (1.005-1.030); Urine Appearance Clear (CLEAR); Urine Color Yellow (Yellow); Urobilinogen Urine 0.2 mg/dL (Negative); pH Urine 6.5 (5-7)
[2024-08-23 15:33] LABS: Add Urine Microscopic? YES; Bacteria Urine None Seen /hpf; Hyaline Casts Urine 0-4 /lpf; RBC Urine 0-2 /hpf (0-2); Squamous Epithelial Cell Urine 0-5 /hpf (0-5); WBC Urine 0-5 /hpf (0-5)
[2024-08-23 15:51] LABS: Alanine Aminotransferase 9 U/L (0-33); Alkaline Phosphatase 56 U/L (35-105); Anion Gap 12.7 (5-19); Aspartate Amino Transferase 14 U/L (0-32); Blood Urea Nitrogen 9 mg/dL (6-20); Calcium 8.6 mg/dL (8.5-10.5); Carbon Dioxide 25 mmol/L (22-29); Chloride 105 mmol/L (98-107); Globulin 2.4 g/dL (1.3-4.6); Glomerular Filtration Rate 123.9 mL/min (90-130); Glucose 83 mg/dL (65-115); Lipase 31 U/L (13-60); Osmolality Calculated 286 mOsm/kg (285-295); Potassium 3.7 mmol/L (3.5-5.1); Sodium 139 mmol/L (136-145); Total Bilirubin 0.2 mg/dL (0.15-1.2); Total Protein 6.4 g/dL (6.6-8.7)
--- NOTE | 2024-08-23 15:59 | PC.NURSE ---
Addendum entered by Christie Mackey LPN 08/23/24 21:03: this note was entered in on wrong pt. Original Note: pt report called to [place] to Jocelynn Contreras RN at 1555.
--- NOTE | 2024-08-23 16:11 | USR_ITS ---
PROCEDURE INFORMATION: Exam: US First Trimester, Transabdominal and US , Transvaginal Exam date and time: 08/23/2024 5:41 PM Age: 24 years old Clinical indication: complicated by abdominal or pelvic pain; Right lower quadrant; First trimester (<14 weeks 0 days); Gestational age or lmp: Per lmp 05w1d; Prior surgery; Surgery date: 6+ months; Surgery type: Unsure of dates- patient reports cervical repair; Additional info: Threatened , right lower quadrant pain. Compared to yesterday's LABS AND CLINICAL REPORTS: Gestational age (Established): 5 w 1 d Estimated due date (Established): 04/24/2025 TECHNIQUE: Imaging protocol: Real-time transabdominal obstetrical ultrasound of the maternal pelvis and a first trimester , less than 14 weeks 0 days, with image documentation. Transvaginal imaging was used for better evaluation of the fetus, adnexa, and/or cervix. COMPARISON: US OB <=14 wk fetus w transvag 08/22/2024 3:17 PM FINDINGS: MATERNAL: Uterus: The endometrium is normal in thickness measuring 7 mm with no intrauterine identified. Cervix: Cervical length measures 3.4 cm. Right ovary/adnexa: There is a simple appearing cyst in the right ovary measuring up to 2.9 cm which may represent a dominant follicle. There is a thick walled cystic mass in the right adnexa measuring 1.9 x 1.7 cm with peripheral vascular flow. This is concerning for an ectopic . The right ovary measures 3.7 x 3.4 x 3.4 cm with vascular flow. Left ovary/adnexa: Small amount free simple fluid in the cul-de-sac and left adnexa. The left ovary measures 3.4 x 1.7 x 1.9 cm with vascular flow. Intraperitoneal space: No intraperitoneal free fluid. US/US OB <=14 wk fetus w transvag IMPRESSION: 1. The endometrium is normal in thickness measuring 7 mm with no intrauterine identified. 2. There is a thick walled cystic mass in the right adnexa measuring 1.9 x 1.7 cm with peripheral vascular flow. This is concerning for an ectopic . 3. Small amount free simple fluid in the cul-de-sac and left adnexa.
--- NOTE | 2024-08-23 16:41 | PC.NURSE ---
Pt's bf in room, pt bf demanding to speak to the dr and wants to know what is going on, this nurse informed DIRECTOR SEARCH and both this nurse and general assembler went to room to talk to pt bf, pt bf appears agitated and is pacing the room. charge nurse aware. will continued to monitor pt visitor.
[2024-08-23] MEDS: ketorolac 30 mg/mL INJ 15 MG IVP (16:50)
[2024-08-23] MEDS: orphenadrine 30 mg/mL Inj 2 mL 60 MG IM (16:50)
--- NOTE | 2024-08-23 17:26 | P.CONIM_ITS ---
Providers/Reason for Consult 2 Consulting Physican/Specialty*: Sonya Bravo DO/GLASS SANDER Reason for Consult*: Positive test with pelvic pain Ectopic versus early IUP GLASS SANDER Consult HPI History of Present Illness Siobhan Alva is a 24 year old female -0-4-1 with positive test, being followed for serial quantitative hCGs. Patient states her pain has lessened, and she feels much better. Again discussed ovarian cysts versus early ectopic or early IUP that has not been identified by ultrasound. Patient denies vaginal bleeding other than a small amount of spotting after being catheterized for UA yesterday. Discussed the decrease in hCG may indicate an early ectopic versus possibility of a missed AB. But with these early values we are unable to discern a definite diagnosis at this time. I advised patient to call early in the a.m. [facility] to see Dr. Acharya for lab or to return to the emergency room for repeat of her hCG titer. Patient understands and agrees.. Pelvic ultrasound on 08/22/2024 with no evidence of IUP or ectopic. 08/22/2024 quantitative hCG?2227 08/23/2024 quantitative hCG 2142 Medications/Allergies Home Medications ?Medication ?Instructions ?Recorded ?Confirmed ?Last Taken ?Type ferrous sulfate 325 mg (65 mg 325 mg PO DAILY #30 tabs 05/30/21 08/23/24 08/23/24 09:00 Rx iron) tablet,delayed release acetaminophen 500 mg tablet 1,000 mg PO Q6H PRN Pain 0 06/10/23 08/23/24 Unknown History ibuprofen 200 mg capsule 800 mg PO Q6H PRN Pain 06/0908/23/24 Unknown History hydrocodone 5 mg-acetaminophen 325 1 tab PO Q6H PRN pa in #12 tabs 08/22/24 08/23/24 08/23/24 09:00 Rx mg tablet Allergies Allergy/AdvReac Type Severity Reaction Status Date / Time No Known Allergies Allergy Verified 08/23/24 15:14 PFSH GLASS SANDER 2 PFSH: Family History Father Diabetes Hypertension Grandmother Hypertension Grandfather Diabetes Denies family history of Colon cancer Ovarian cancer Prostate cancer Heart disease Hyperlipidemia Breast cancer Uterine cancer Thyroid disease Stroke Social History Smoking and tobacco/nicotine status: former use of tobacco/nicotine Vitals/I&O/Wt Last Vital Signs Temp 98.5 F 08/23/24 14:55 Pulse 67 08/23/24 17:00 Resp 16 08/23/24 15:59 BP 116/89 08/23/24 17:00 Pulse Ox 100 08/23/24 17:00 O2 Del Method Room Air 08/23/24 17:00 08/23/24 08/23/24 08/23/24 06:59 14:59 22:59 Intake Total 0 / 0 Balance 0 / 0 Data 08/23/24 15:15 08/23/24 15:15 A&P Assessment and plan (1) Threatened in early : (2) First trimester : (3) Pelvic pain: (4) History of multiple miscarriages: (5) Positive test: PDMP PDMP Reviewed: Not Reviewed Coding Level of Care Code Acute Code for Chg Fwd Diagnoses Threatened in early O20.0 First trimester Z34.91 Pelvic pain R10.2 History of multiple miscarriages N96 Positive test Z32.01
--- NOTE | 2024-08-23 19:59 | PC.NURSE ---
Pt has been NPO since 799. PT ID band on allergy band on.
--- NOTE | 2024-08-23 19:59 | PC.NURSE ---
this nurse told pt that she is nothing to eat nothing to drink d/t surgery.
--- NOTE | 2024-08-23 20:41 | P.HP_ITS ---
Providers/Chief Complaint 2 Admitting Physician: Sonya Bravo DO Primary BUSINESS COMPUTERS TEACHER: Dr. Jostin Acharya Chief Complaint: abd pain, 5 weeks preg HPI BUSINESS COMPUTERS TEACHER History of Present Illness Siobhan Alva is a 24 year old female -0-5-1 with LMP 07/17/2024 seen in the emergency room on 08/22/2024 and on repeat visit today for suspicion of right ectopic . Patient initially presented with right sided pelvic pain and history of a positive test at home and through the health department. Quantitative hCG of 2270 and an ultrasound indicating no IUP or ectopic, a follicular cyst and possible corpus luteal cyst were noted with a small amount of free fluid in the cul-de-sac. on 08/22/2024. Today patient presented for repeat quantitative hCG which decreased slightly to 2140 and repeat transvaginal ultrasound indicated a thick walled cystic mass in the right adnexa measuring 1.9 x 1.7 cm with peripheral vascular flow. Small amount of simple fluid in the cul-de-sac was noted. Patient's pelvic pain had initially decreased to a 3/10 and later increased to 5/10. With the new findings on ultrasound and patient's pelvic pain increasing I have discussed with patient surgical procedure for probable ruptured ectopic. Diagnostic/operative laparoscopy was reviewed to evaluate her right adnexa for ruptured ectopic , if bleeding can be controlled in that area removed I will give the best effort to conserve that tube if possible. If bleeding persist we will need to remove that tube for best operative outcome. If the tube cannot be visualized for best operative care we will do a laparotomy to perform this procedure. Risk of bleeding, infection, injury to pelvic organs, vasculature and nerves reviewed. Hospital admission may entail 1 to 3 days depending on surgical findings and outcome. We discussed if the right tube in its entirety has to be removed patient will still be able to achieve a future from the left side. Patient verbalizes understanding. Patient consents for diagnostic/operative laparoscopy and possible laparotomy with right salpingectomy. Review of Systems 2 General: Reports: 10 or more systems reviewed and unremarkable except in HPI and below Medications/Allergies Home Medications ?Medication ?Instructions ?Recorded ?Confirmed ?Last Taken ?Type ferrous sulfate 325 mg (65 mg 325 mg PO DAILY #30 tabs 05/30/21 08/23/24 08/23/24 09:00 Rx iron) tablet,delayed release acetaminophen 500 mg tablet 1,000 mg PO Q6H PRN Pain 0 06/10/23 08/23/24 Unknown History ibuprofen 200 mg capsule 800 mg PO Q6H PRN Pain 06/0908/23/24 Unknown History hydrocodone 5 mg-acetaminophen 325 1 tab PO Q6H PRN pa in #12 tabs 08/22/24 08/23/24 08/23/24 09:00 Rx mg tablet Allergies Allergy/AdvReac Type Severity Reaction Status Date / Time No Known Allergies Allergy Verified 08/23/24 15:14 PFSH BUSINESS COMPUTERS TEACHER 2 PFSH: Family History Father Diabetes Hypertension Grandmother Hypertension Grandfather Diabetes Denies family history of Colon cancer Ovarian cancer Prostate cancer Heart disease Hyperlipidemia Breast cancer Uterine cancer Thyroid disease Stroke Social History Smoking and tobacco/nicotine status: former use of tobacco/nicotine Other Female Reproductive History: Hx Age of Menarche: 13 Duration of menses: 3-5 days Date of Last Menstrual Period: 07/18/24 Cycle Length: 25- 30 days Menstrual flow: normal/abnormal: normal Sexual History: Are you sexually active?: Yes How old were you when you first had sex?: 19 Less than 5 How long have you been with your current partner?: 07/2023 What is your sexual preference?: Heterosexual Contraception: Contraception History Comment: History of OCP and contraceptive patch use History History History 2 6 Term 1 0 Miscarriages/Ectopic 5 Living Children 1 Vitals/I&O/Wt Last Vital Signs Temp 98.5 F 08/23/24 14:55 Pulse 61 08/23/24 20:00 Resp 16 08/23/24 15:59 BP 112/64 08/23/24 20:00 Pulse Ox 98 08/23/24 20:00 O2 Del Method Room Air 08/23/24 20:00 08/23/24 08/23/24 08/23/24 06:59 14:59 22:59 Intake Total 0 / 0 Balance 0 / 0 Weight last 48 hrs Weight 63.503 kg Physical Exam 2 HENMT: COMMON NORMALS: normocephalic and dentition normal Resp: COMMON NORMALS: normal respiratory effort and clear to auscultation bilaterally Cardio: COMMON NORMALS: regular rate and regular rhythm Back/Pelvis: OTHER: Abdomen?soft, nondistended, guarding from right lower quadrant Extremity: COMMON NORMALS: normal to inspection, no clubbing, cyanosis or edema and no calf tenderness Neuro: COMMON NORMALS: patient oriented x3, CN's II-XII intact bilaterally, moves all extremities and deep tendon reflexes 2+ bilaterally Data 08/23/24 15:15 08/23/24 15:15 Results Labs OB ([facility]): 2 Obstetrics US Today Blood Type B Positive 08/22/24 Antibody Screen Negative 08/22/24 Hct, (36-47) 35.5 % L Today Hgb, (11.27-16.99) 11.60 g/dL Today Rho(D) Type Rh positive 08/22/24 Plt Count, (157-399) 178 10^3/cmm Δ Today Ser , Semi-Qnt 2142.00 mIU/mL Today HCG, Qual, (Negative) Negative 06/10/23 Micro Urine Specimen 08/22/24 A&P Assessment and plan (1) Ectopic : A 1. Right ruptured ectopic P 1. Proceed with diagnostic/operative laparoscopy for right ectopic with the possibility of laparotomy if needed for visualization to achieve salpingostomy and possible salpingectomy if needed. (2) Pelvic pain: (3) Positive test: (4) History of multiple miscarriages: PDMP PDMP Reviewed: Not Reviewed Attestations 2 Medical Necessity Statement*: 24-year-old female admitted to [facility] after emergency room visit with pelvic pain and ultrasound diagnosed right ruptured ectopic . Will proceed with surgical intervention. Coding Level of Care Code Acute Code for Chg Fwd Diagnoses Ectopic O00.101 Intrauterine status: without intrauterine Laterality: right Location of ectopic : tubal Pelvic pain R10.2 Positive test Z32.01 History of multiple miscarriages N96
--- NOTE | 2024-08-23 21:18 | ANES.PREANE2 ---
Pre-Anesthetic Assessment Height/Weight: Height 5 ft 8 in Weight 140 lb Temp Pulse Resp BP Pulse Ox O2 Del Method 98.5 F 71 16 107/64 97 Room Air 08/23/24 14:55 08/23/24 21:07 08/23/24 15:59 08/23/24 21:07 08/23/24 21:07 08/23/24 20:30 Preop Diagnosis: Concern for ectopic Operation Date: 08/23/24 21:50 Proposed Procedures p Laparoscopic Ectopic (Not Applicable) - Sonya Bravo DO Was Beta [place] taken within 24 hours: N/A Was Clonidine taken within 24 hours: N/A Social Alcohol and Tobacco Smokes marijuana nicotine daily Exam alert, oriented x 3 and clear to auscultation bilaterally Airway Submandibular: within normal limits Cervical ROM: within normal limits Mallampati: Class II Dentition: full Anesthetic Plan ASA status: 2E Anesthesia: General Other: No prior issues with anesthesia NPO since 8 AM, peanut butter with crackers Patient was initially seen yesterday in the ED, positive hCG but no intrauterine Patient was seen today in the ER and appears to have a possible ectopic Vitals are currently stable Labs reviewed and acceptable for procedure Patient appears to have PACs or possible first-degree AV block on 3-lead EKG, denies any shortness of breath or chest pain Patient admits to smoking nicotine and marijuana daily Occasional alcohol use Plan for GETA Medications/Allergies Home Medications ?Medication ?Instructions ?Recorded ?Confirmed ?Last Taken ?Type ferrous sulfate 325 mg (65 mg 325 mg PO DAILY #30 tabs 05/30/21 08/23/24 08/23/24 09:00 Rx iron) tablet,delayed release acetaminophen 500 mg tablet 1,000 mg PO Q6H PRN Pain 06/10/23 08/23/24 Unknown History ibuprofen 200 mg capsule 800 mg PO Q6H PRN Pain 06/10/23 08/23/24 Unknown History hydrocodone 5 mg-acetaminophen 325 1 tab PO Q6H PRN pain #12 tabs 08/22/24 08/23/24 08/23/24 09:00 Rx mg tablet Allergies Allergy/AdvReac Type Severity Reaction Status Date / Time No Known Allergies Allergy Verified 08/23/24 15:14 [facility] Anesthesia Family History Father Diabetes Hypertension Grandmother Hypertension Grandfather Diabetes Denies family history of Colon cancer Ovarian cancer Prostate cancer Heart disease Hyperlipidemia Breast cancer Uterine cancer Thyroid disease Stroke Social History Smoking and tobacco/nicotine status: former use of tobacco/nicotine Data Anesthesia 08/23/24 15:15 08/23/24 15:15 Short CBC 08/23/24 Range/Units 15:15 WBC 5.94 (3.29-11.43) 10^3/uL Hgb 11.60 (11.27-16.99) g/dL Hct 35.5 L (36-47) % MCV 84.9 L (85-98) fl Plt Count 178 D (157-399) 10^3/cmm Neut % (Auto) 65.3 % Neut # (Auto) 3.88 (1.8-7.7) 10^3/uL BMP 08/23/24 15:15 Sodium 139 Potassium 3.7 Chloride 105 Carbon Dioxide 25 BUN 9 Creatinine 0.6 Glucose 83 Calcium 8.6 Liver Function 08/23/24 Range/Units 15:15 Total Bilirubin 0.2 (0.15-1.2) mg/dL AST 14 (0-32) U/L ALT 9 (0-33) U/L Alkaline Phosphatase 56 (35-105) U/L Albumin 4.0 (3.5-5.2) g/dL Urine 08/23/24 Range/Units 15:13 Urine Color Yellow (Yellow) Urine Appearance Clear (CLEAR) Urine pH 6.5 (5-7) Ur Specific [place] 1.007 (1.005-1.030) Urine Protein Negative (Negative) Urine Glucose (UA) Negative (Normal) Urine Ketones Negative (Negative) Urine Nitrate Negative (Negative) Urine Bilirubin Negative (Negative) Ur Leukocyte Esterase Trace A (Negative) Urine RBC 0-2 (0-2) /hpf Urine WBC 0-5 (0-5) /hpf
[2024-08-23] MEDS: sodium chloride 0.9% 1,000 ML 30 ML IV (21:20)
[2024-08-23] MEDS: BUPivacaine 0.5% INJ 30 mL 10 ML INJECTION (23:00)
--- NOTE | 2024-08-23 23:25 | ANE.PACU2 ---
Inpatient post-anesthesia follow up: Airway intact: Yes Vital signs: Temperature 98.7 F Pulse Rate 70 Respiratory Rate 16 Blood Pressure 108/68 Pulse Oximetry 95 Oxygen Delivery Me thod Room Air Oxygen Flow Rate Fraction of Inspir ed Oxygen Hydration adequate: Yes Nausea and vomiting: No Pain level: 2 Mental status: Baseline
--- NOTE | 2024-08-23 23:28 | PM.OP ---
Operative Report Date of procedure: August 23, 2024 Pre-op diagnosis: Positive test Right sided pelvic pain Right ruptured ectopic Post-op diagnosis: Right ectopic Post-op findings: Right ectopic with blood in posterior cul-de-sac Right ovarian cyst Procedure done: Operative laparoscopy with right partial salpingectomy Specimens removed/disposition: Right fallopian tube containing ectopic Pathology: Specimen of right fallopian tube containing ectopic Surgeon: Sonya Bravo DO Anesthesia: General Estimated blood loss (mL): 150 Urine output (mL): 100 Complications: None Condition: stable Disposition: PACU Brief History: 24-year-old female G6, P1 initially seen in the emergency room with complaints of right sided pelvic pain and positive test documented from the health department. LMP 07/18/2024 coinciding with a 5-week gestation. Quantitative hCG 2270 on 08/22/2024 with a repeat test today of 2140. Transvaginal ultrasound was repeated today documenting a 1.7 x 1.9 cm cystic mass in the right fallopian tube. These findings were reviewed with patient and her family, surgical intervention was reviewed with risk and benefits reviewed in great detail to include bleeding, infection, injury to pelvic organs including blood vessels and nerves. The possibility of having to remove the tube was reviewed as well. The possibility of future pregnancies from the left side was reviewed. The increased risk of future ectopic pregnancies on the right was also reviewed. Patient verbalized understanding and consents for surgical procedure diagnostic/operative laparoscopy with possible laparotomy and possible right salpingectomy. Procedure: The patient was taken to the surgical suite placed in supine position intubated and general anesthesia administered. Patient was then positioned in dorsolithotomy position the pelvis and abdomen prepped and draped in the standard fashion. A Valdes was placed in the bladder for drainage during the procedure. A speculum was placed in the vaginal vault and the anterior lip of the cervix grasped with a straight to tenaculum and the Hulka clamp placed on the cervix for manipulation during the procedure. The speculum was removed gloves changed and attention turned to the abdomen. A small incision was made in the infraumbilical fold and the Veress needle placed through the incision with insufflation of 2-1/2 L of CO2 gas. The Veress needle was then removed and a 5 mm trocar and sleeve placed through the incision. The trocar was removed and the scope placed through the sleeve with good visualization of the abdomen and pelvis. A second incision was made 2 cm above the pubic bone and a 10 mm trocar and sleeve placed under direct visualization with the laparoscope. Patient was placed in Trendelenburg the uterus elevated in the right fallopian tube visualized and evaluated. At the fimbriated end an approximate 2 cm mass was noted. A moderate amount of fluid was noted in the posterior cul-de-sac. A clot was noted on the posterior aspect of the tube. The clot was teased away with a small amount of bleeding noted. A third incision was made in the left abdominal wall and a second 5 mm trocar and sleeve placed under direct visualization. The trocar was removed and a grasper was used to elevate and manipulate the fimbriated end of the right fallopian tube for cauterization and transection with the LigaSure which was introduced through the 10 mm port. The LigaSure was then removed and a collection bag introduced into the 10 mm port collecting the specimen. The tubal stump was noted to be hemostatically intact. The abdominal incision was extended for removal of the specimen. The posterior cul-de-sac was irrigated and flushed with saline. The tubal stump was once again inspected and noted to be hemostatically intact. The CO2 gas was allowed to exit the ports and all 3 ports were then removed from the abdominal wall. The fascia was approximated and all incisions and subcuticular closure was performed. Skin adhesive were used to cover the incisions. The abdominal wall cleansed and dried. Infiltration of the incisions with lidocaine was done. Attention was then returned to the vaginal vault where the HUMI and straight to tenaculum was removed. The speculum was replaced in the vaginal vault and a sponge stick used to put pressure over the tenaculum sites. Good hemostasis was resulted and was noted. The speculum was removed. The patient was repositioned. And awakened in stable and satisfactory condition patient was then transported to PACU for recovery. After recovery patient will be taken to the women's floor for postop stay. Related Problem List Diagnoses (1) Ectopic : (2) Pelvic pain: (3) Positive test:
[2024-08-23] MEDS: simethicone 80 mg Chew PO (23:48)
[2024-08-23] MEDS: HYDROcodone-acetaminophen 5-325 mg Tablet PO (23:48)
[2024-08-23] MEDS: ketorolac 30 mg/mL INJ IVP (23:49)
[2024-08-23] MEDS: dextrose 5%-lactated ringers 1,000 ML 125 ML IV (23:49)
[2024-08-24] VITALS (10 sets, daily range): BP systolic 101–126; BP diastolic 56–81; PULSE 50–80; RESP 14–16; TEMP 36.7–37.1; O2SAT 95–98
[2024-08-24] MEDS: ketorolac 30 mg/mL INJ IVP ×2 (05:52→14:29)
--- NOTE | 2024-08-24 06:13 | PC.NURSE ---
catheter removed at this time, pt tolerated well, 10mL of saline returned from balloon prior to catheter removal, stat lock removed from pt right thigh, skin intact.
[2024-08-24 06:16] LABS: Hematocrit 35.4 % (36-47); Mean Corpuscular HGB Conc 32.5 g/dL (30-55); Mean Corpuscular Hemoglobin 27.3 pg (27-33); Mean Corpuscular Volume 84.1 fl (85-98); Mean Platelet Volume 11.2 fL (7.4-10.4); Platelet Count 158 10^3/cmm (157-399); Red Blood Count 4.21 10^6/uL (3.85-5.65); Red Cell Distribution Width 12.6 % (12.1-15.1); White Blood Count 7.09 10^3/uL (3.29-11.43)
[2024-08-24] MEDS: HYDROcodone-acetaminophen 5-325 mg Tablet PO (06:50)
--- NOTE | 2024-08-24 07:40 | PM.OBGYPN ---
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 Patient seen and easily awakened. Discussion of procedure with patient and significant other. Postop expectations reviewed to include high-fiber diet and increase fluids and ambulation. Incisional care reviewed and patient verbalizes understanding. VSS, afebrile Vitals/I&O/Wt Last Vital Signs Temp 98.0 F 08/24/24 06:00 Pulse 50 L 08/24/24 06:00 Resp 16 08/24/24 06:00 BP 107/56 08/24/24 06:00 Pulse Ox 98 08/24/24 06:00 O2 Del Method Room Air 08/24/24 06:00 08/23/24 08/24/24 08/24/24 22:59 06:59 14:59 Intake Total 0 / 0 50 / 50 1000 / 1000 Output Total 250 / 250 1000 / 1250 Balance -250 / -250 -950 / -1200 1000 / 1000 Weight last 48 hrs Weight 63.503 kg Physical Exam Back/Pelvis: OTHER: Abdomen?soft, nondistended Incision x 3 intact and clean. Extremity: COMMON NORMALS: normal to inspection, no clubbing, cyanosis or edema and no calf tenderness Data 08/24/24 06:05 08/23/24 15:15 A&P Assessment and plan (1) Postop check: S/p laparoscopic right salpingectomy (partial) for ruptured ectopic (2) Ectopic : (3) History of multiple miscarriages: (4) Positive test: PDMP PDMP Reviewed: Not Reviewed Attestations Medical Necessity Statement*: Patient was admitted to [facility] for surgical intervention for ruptured right ectopic . Coding Level of Care Code Acute Code for Chg Fwd Diagnoses Postop check Z09 Ectopic O00.101 Intrauterine status: without intrauterine Laterality: right Location of ectopic : tubal History of multiple miscarriages N96 Positive test Z32.01
--- NOTE | 2024-08-24 16:47 | PM.OBGYDC ---
Discharge Providers SHIPPING/RECEIVING CLERK Date of Admission: 08/23/24 20:24 Date of Discharge: 08/24/24 Attending Provider at Admission: Sonya Bravo DO Attending Provider at Discharge: Sonya Bravo DO Primary SHIPPING/RECEIVING CLERK: Jostin Acharya MD Diagnoses at Discharge Discharge Diagnosis (1) Postop check: Details from hospital stay: 24-year-old female G6, P1 s/p operative laparoscopy with right partial salpingectomy for ruptured right ectopic . Patient's postoperative stay has been uneventful. Patient is tolerating a regular diet, voiding and ambulating in her room. Postop and discharge expectations have been reviewed in great detail to include no heavy lifting pushing or pulling no sex douching or tampons x 6 weeks. Patient is encouraged to start control after 2 weeks for at least the next 3 months. I have reviewed with the patient risk of future ectopic pregnancies. After she has a positive test patient is encouraged to get early care to confirm intrauterine versus the risk of ectopic. Patient verbalizes understanding. VSS, afebrile Abdomen?soft, nondistended Incision clean dry and intact. Status: Acute (2) Ectopic : Status: Acute Qualifiers: Intrauterine status: without intrauterine Laterality: right Location of ectopic : tubal Qualified Code(s): O00.101 - Right tubal without intrauterine (3) History of multiple miscarriages: Status: Acute (4) Positive test: Status: Acute Reason for Visit Reason for Visit: abd pain, 5 weeks preg History History History 6 Term 1 0 Miscarriages/Ectopic 5 Living Children 1 Discharge Data Studies Completed and Pending Completed Studies During Hospitalization Category Date Time Status US OB <=14 wk fetus w transvag Stat Ultrasound 08/23/24 16:11 Completed Pending at discharge Category Date Time Status Pathology: Surgical [PTH] Routine Pth 08/23/24 23:23 Received Radiology Impressions Obstetrics Ultrasound 08/23/24 16:11 IMPRESSION: 1. The endometrium is normal in thickness measuring 7 mm with no intrauterine identified. 2. There is a thick walled cystic mass in the right adnexa measuring 1.9 x 1.7 cm with peripheral vascular flow. This is concerning for an ectopic . 3. Small amount free simple fluid in the cul-de-sac and left adnexa. ADDENDUM: 08/23/241947 THIS REPORT CONTAINS FINDINGS THAT MAY BE CRITICAL TO PATIENT CARE. The findings were verbally communicated via telephone conference with Kelsi Ramsey at 7:48 PM T on 08/23/2024. The findings were acknowledged and understood. Laboratory Results WBC 7.09 10^3/uL (3.29-11.43) 08/24/24 06:05 RBC 4.21 10^6/uL (3.85-5.65) 08/24/24 06:05 Hgb 11.50 g/dL (11.27-16.99) 08/24/24 06:05 Hct 35.4 % (36-47) L 08/24/24 06:05 MCV 84.1 fl (85-98) L 08/24/24 06:05 MCH 27.3 pg (27-33) 08/24/24 06:05 MCHC 32.5 g/dL (30-55) 08/24/24 06:05 RDW 12.6 % (12.1-15.1) 08/24/24 06:05 Plt Count 158 10^3/cmm (157-399) 08/24/24 06:05 MPV 11.2 fL (7.4-10.4) H 08/24/24 06:05 Neut % (Auto) 65.3 % 08/23/24 15:15 Lymph % (Auto) 22.6 % 08/23/24 15:15 Wilkinson % (Auto) 7.9 % 08/23/24 15:15 Eos % (Auto) 3.4 % 08/23/24 15:15 Baso % (Auto) 0.5 % 08/23/24 15:15 Neut # (Auto) 3.88 10^3/uL (1.8-7.7) 08/23/24 15:15 Lymph # (Auto) 1.3 10^3/uL (0.8-4.8) 08/23/24 15:15 Wilkinson # (Auto) 0.5 10^3/uL (0.2-0.9) 08/23/24 15:15 Eos # (Auto) 0.2 10^3/uL (0.0-0.8) 08/23/24 15:15 Baso # (Auto) 0.0 10^3/uL (0.0-0.1) 08/23/24 15:15 Nucleated RBC % (auto) 0 % 08/23/24 15:15 Nucleated RBCs # 0.0 /100WBC 08/23/24 15:15 Sodium 139 mmol/L (136-145) 08/23/24 15:15 Potassium 3.7 mmol/L (3.5-5.1) 08/23/24 15:15 Chloride 105 mmol/L (98-107) 08/23/24 15:15 Carbon Dioxide 25 mmol/L (22-29) 08/23/24 15:15 Anion Gap 12.7 (5-19) 08/23/24 15:15 BUN 9 mg/dL (6-20) 08/23/24 15:15 Creatinine 0.6 mg/dL (0.5-0.9) 08/23/24 15:15 GFR Calculation 123.9 mL/min (90-130) 08/23/24 15:15 Glucose 83 mg/dL (65-115) 08/23/24 15:15 Calculated Osmolality 286 mOsm/kg (285-295) 08/23/24 15:15 Calcium 8.6 mg/dL (8.5-10.5) 08/23/24 15:15 Total Bilirubin 0.2 mg/dL (0.15-1.2) 08/23/24 15:15 AST 14 U/L (0-32) 08/23/24 15:15 ALT 9 U/L (0-33) 08/23/24 15:15 Alkaline Phosphatase 56 U/L (35-105) 08/23/24 15:15 Total Protein 6.4 g/dL (6.6-8.7) L 08/23/24 15:15 Albumin 4.0 g/dL (3.5-5.2) 08/23/24 15:15 Globulin 2.4 g/dL (1.3-4.6) 08/23/24 15:15 Lipase 31 U/L (13-60) 08/23/24 15:15 Ser , Semi-Qnt 2142.00 mIU/mL 08/23/24 15:15 Urine Color Yellow (Yellow) 08/23/24 15:13 Urine Appearance Clear (CLEAR) 08/23/24 15:13 Urine pH 6.5 (5-7) 08/23/24 15:13 Ur Specific [place] 1.007 (1.005-1.030) 08/23/24 15:13 Urine Protein Negative (Negative) 08/23/24 15:13 Urine Glucose (UA) Negative (Normal) 08/23/24 15:13 Urine Ketones Negative (Negative) 08/23/24 15:13 Urine Blood 3+ (Negative) A 08/23/24 15:13 Urine Nitrate Negative (Negative) 08/23/24 15:13 Urine Bilirubin Negative (Negative) 08/23/24 15:13 Urine Urobilinogen 0.2 mg/dL (Negative) 08/23/24 15:13 Ur Leukocyte Esterase Trace (Negative) A 08/23/24 15:13 Urine RBC 0-2 /hpf (0-2) 08/23/24 15:13 Urine WBC 0-5 /hpf (0-5) 08/23/24 15:13 Ur Squamous Epith Cells 0-5 /hpf (0-5) 08/23/24 15:13 Amorphous Sediment Not Reportable 08/23/24 15:13 Urine Bacteria None seen /hpf (NONE) 08/23/24 15:13 Hyaline Casts 0-4 /lpf H 08/23/24 15:13 Vitals Last Vital Signs Temp 98.7 F 08/24/24 11:00 Pulse 70 08/24/24 11:00 Resp 16 08/24/24 11:00 BP 108/68 08/24/24 11:00 Pulse Ox 95 08/24/24 11:00 O2 Del Method Room Air 08/24/24 11:00 Results Labs OB ([facility]): Obstetrics US 08/23/24 Blood Type B Positive 08/22/24 Antibody Screen Negative 08/22/24 Hct, (36-47) 35.4 % L Today Hgb, (11.27-16.99) 11.50 g/dL Today Rho(D) Type Rh positive 08/22/24 Plt Count, (157-399) 158 10^3/cmm Today Ser , Semi-Qnt 2142.00 mIU/mL 08/23/24 HCG, Qual, (Negative) Negative 06/10/23 Micro Urine Specimen 08/22/24 Discharge Plan Discharge Patient Disposition: Home Condition: Stable Prescriptions: Continued ibuprofen 200 mg Capsule 800 mg PO Q6H PRN (Reason: Pain) acetaminophen 500 mg Tablet 1,000 mg PO Q6H PRN (Reason: Pain) ferrous sulfate 325 mg (65 mg iron) tablet,delayed release (DR/EC) 325 mg PO DAILY Qty: 30 0RF hydrocodone-acetaminophen 5-325 mg tablet 1 tab PO Q6H PRN (Reason: pain) Qty: 6 0RF Discharge Orders: Discharge Order (Routine); Ordered 08/24/24 Ordered By: Sonya Bravo Referrals: Sonya Bravo DO [Physician, SHIPPING/RECEIVING CLERK] Discharge Diet: Regular Discharge Activity: Increase activity as tolerated Patient Instructions: Miscarriage (ED), Acute Wound Care (DC), Opioid Safety, Post Anesthesia Care Activity Restrictions/Additional Instructions: No heavy lifting pushing or pulling no sexual intercourse x 6 weeks. Patient is to shower daily keeping incisions clean and dry. Patient to continue high-fiber diet with increased fluids. Patient's Health Concerns: Future risk of ectopic Assessment: 1. S/p right ruptured ectopic 2. S/p operative laparoscopy with right partial salpingectomy Plan of Treatment: DC patient to home Follow-up in 2 weeks at the women's clinic for postop evaluation and contraception. Discharge Attestations SHIPPING/RECEIVING CLERK Time Spent in Discharge Care*: less than 30 min Coding Level of Care Code Acute Code for Chg Fwd Diagnoses Postop check Z09 Ectopic O00.101 Intrauterine status: without intrauterine Laterality: right Location of ectopic : tubal History of multiple miscarriages N96 Positive test Z32.01
== END 2024-08-24 18:15 | disposition home or self-care (01) ==
LOC: ER 20:12 → OBGYN 21:14
PROVIDERS: Emergency Medicine; Admitting Provider Obstetrics & Gynecology; Emergency Provider Physician Assistant; Visit Provider Obstetrics & Gynecology
PROC: (CPT 59150; principal; 2024-08-23 21:30)
PROC: 10T20ZZ Resection of Products of Conception, Ectopic, Open Approach (ICD-10-PCS; CPT 59151; 2024-08-23 21:30)
DX: O00.101 Right tubal pregnancy without intrauterine pregnancy (principal); N83.201 Unspecified ovarian cyst, right side; N96 Recurrent pregnancy loss; F17.200 Nicotine dependence, unspecified, uncomplicated; F12.90 Cannabis use, unspecified, uncomplicated
CPT/HCPCS: 59151; 36415; 76801; 76817; 80053; 81001; 83690; 84702; 85025; 85027; 88302; 88305; 96374; 99285; G0378; J0330; J0690; J1171; J1885; J2360; J2704; J3490; J7030; J7121; J9999

== ENCOUNTER 2024-10-25 14:56 | Emergency (ER) | payer SELFPAY ==
--- OUTSIDE RECORDS SUMMARY | 2024-10-25 12:00 | XMS_ITS | Encounter Summary ---
Author Organization [facility] Address [address] [place] [address] Care Team Providers Care Forester Aide Name Role Phone Johnny Snyder MD Primary Care Provider [phone] Reason for Visit * Reason Comments Abdominal Pain Encounter Details Date Type Department Care Team (Late st Contact Info) Description 10/25/2024 12:00 PM CDT - 10/25/2024 1:48 PM CDT Emergency [facility] Emergency Medicine [address] [place] [phone] Abdominal pain, acute, right lower quadrant (Primary Dx) Discharge Disposition: Acute Care Hospital Social History Tobacco Use Types Packs/Day Years Used Date Smoking Tobacco: Never Smokeless Tobacco: Never Alcohol Use Standard Drinks/Week Comments No 0 (1 standard drink = 0.6 oz pur e alcohol) Comments Yes Sex and Gender Information Value Date Recorded Sex Assigned at Not on file Legal Sex Female 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 Gender Identity Not on file Sexual Orientation Not on file documented as of this encounter Last Filed Vital Signs Vital Sign Reading Time Taken Comments Blood Pressure 115/102 10/25/2024 1:30 PM CDT Pulse 75 10/25/2024 1:45 PM CDT Temperature 37.1 C (98.8 F) 10/25/2024 12:07 PM CDT Respiratory Rate 16 10/25/2024 12:07 PM CDT Oxygen Saturation 99% 10/25/2024 1:45 PM CDT Inhaled Oxygen Concentration - - Weight 63.1 kg (139 lb 3.2 oz) 10/25/2024 12:07 PM CDT Height 170.2 cm (5' 7 ) 10/25/2024 12:07 PM CDT Body Mass Index 21.8 10/25/2024 12:07 PM CDT documented in this encounter Discharge Instructions * Attachments The following attachments cannot be sent through Care Everywhere. * Abdominal Pain ([place] Citizen) documented in this encounter Medications at Time of Discharge ferrous sulfate 325 mg (65 mg iron) tabletIndications :Iron deficiency anemia secondary to inadequate dietary iron intake Take 1 Tablet (325 mg) by mouth daily. 90 Tablet 3 01/16/2024 [id number] ( Vitamin) Tablet Take 1 Tablet by mouth daily. documented as of this encounter ED Notes * Spring Barber RN - 10/25/2024 12:11 PM CDT Pt reports abdominal pain at lap incisions sites x 2 days. Pt has hx of emergent lap surgery for ectopic at [facility] 2 months ago. Reports pain is cramping at lower incision site and stretching at top one. Denies, vaginal bleeding. Reports she is 5 weeks and has not had an ultra soundyet to say exact date and her LMP was 09/13/24 documented in this encounter Plan of Treatment Not on file documented as of this encounter Procedures Procedure Name Priority Date/Time Associated Diagnosis Comments CBC WITH DIFFERENTIAL Stat 10/25/2024 12:34 PM CDT HCG QUANTITATIVE, BLOOD Stat 10/25/2024 12:34 PM CDT COMPREHENSIVE METABOLIC PANEL Stat 10/25/2024 12:34 PM CDT documented in this encounter Results * (ABNORMAL) COMPREHENSIVE METABOLIC PANEL (10/25/2024 12:34 PM CDT) SODIUM 138 136 - 145 mmol/L 10/25/2024 1:14 PM CDT [facility] POTASSIUM 3.5 3.5 - 5.1 mmol/L 10/25/2024 1:14 PM CDT [facility] CHLORIDE 103 98 - 107 mmol/L 10/25/2024 1:14 PM [facility] CO2 24 22 - 29 mmol/L 10/25/2024 1:14 PM [facility] CALCIUM 9.1 8.6 - 10.0 mg/dL 10/25/2024 1:14 PM [facility] BUN 9 6 - 20 mg/dL 10/25/2024 1:14 PM [facility] CREATININE 0.72 0.51 - 0.95 mg/dL 10/25/2024 1:14 PM [facility] GLUCOSE 54(LL) 74 - 99 mg/dL 10/25/2024 1:14 PM [facility] TOTAL PROTEIN 6.6 6.6 - 8.7 g/dL 10/25/2024 1:14 PM [facility] ALBUMIN 4.2 3.5 - 5.2 g/dL 10/25/2024 1:14 PM [facility] BILIRUBIN TOTAL 0.3 0.0 - 1.2 mg/dL 10/25/2024 1:14 PM [facility] ALKALINE PHOSPHATASE 55 35 - 104 U/L 10/25/2024 1:14 PM [facility] AST 15 0 - 35 U/L 10/25/2024 1:14 PM [facility] ALT 7 0 - 35 U/L 10/25/2024 1:14 PM [facility] GFR >60 >=60 mL/min/1.7 3 sq meter 10/25/2024 1:14 PM [facility] Comment:eGFR calculated with 2020 CKD-EPI equation. Vegetarian diet, extremely high or low muscle mass, and may affect results. Cystatin C with Glomerular Filtration Rate is a suitable alternative for these patients. ANION GAP 11 5 - 20 mmol/L 10/25/2024 1:14 PM [facility] Blood Venipuncture / Unknown 10/25/2024 12:34 PM CDT 10/25/2024 12:46 PM CDT us Argenis Ragsdale Luis Angelbella TRAINING ANALYST CHEMISTRY ORDERABLES Fi nal Result [facility] CLIA # [id number] [address] [place] [address] * (ABNORMAL) CBC WITH DIFFERENTIAL (10/25/2024 12:34 PM CDT) WBC 5.7 4.0 - 10.0 K/uL 10/25/2024 12:50 PM CDT [facility] RBC 4.69 3.93 - 5.22 M/uL 10/25/2024 12:50 PM [facility] HEMOGLOBIN 12.8 11.2 - 15.7 g/dL 10/25/2024 12:50 PM [facility] HEMATOCRIT 38.3 34.1 - 44.9 % 10/25/2024 12:50 PM [facility] MCV 81.7 79.4 - 94.8 fL 10/25/2024 12:50 PM CDT [facility] MCH 27.3 25.6 - 32.2 pg 10/25/2024 12:50 PM [facility] MCHC 33.4 32.2 - 35.5 g/dL 10/25/2024 12:50 PM [facility] RDW 12.4 11.0 - 14.5 % 10/25/2024 12:50 PM [facility] RDW-STDEV 36.3(L) 36.9 - 56.9 fL 10/25/2024 12:50 PM [facility] PLATELETS 198 163 - 337 K/uL 10/25/2024 12:50 PM T [facility] MPV 10.6 10.0 - 14.8 fL 10/25/2024 12:50 PM [facility] NEUTROPHILS 68 34 - 71 % 10/25/2024 12:50 PM [facility] LYMPHOCYTES 18(L) 19 - 52 % 10/25/2024 12:50 PM [facility] MONOCYTES 10 5 - 13 % 10/25/2024 12:50 PM CDT [facility] EOSINOPHILS 4 1 - 6 % 10/25/2024 12:50 PM CDT [facility] BASOPHILS 1 0 - 1 % 10/25/2024 12:50 PM CDT [facility] IMMATURE GRANULOCYTES 1 % 10/25/2024 12:50 PM CDT [facility] NEUTROPHIL ABSOLUTE 3.86 1.56 - 6.13 K/uL 10/25/2024 12:50 PM CDT [facility] LYMPHOCYTE ABSOLUTE 1.03(L) 1.20 - 3.40 K/uL 10/25/2024 12:50 PM CDT [facility] MONOCYTE ABSOLUTE 0.54(H) 0.24 - 0.36 K/uL 10/25/2024 12:50 PM CDT [facility] EOSINOPHIL ABSOLUTE 0.20 0.04 - 0.36 K/uL 10/25/2024 12:50 PM T [facility] BASOPHILS ABSOLUTE 0.03 0.01 - 0.08 K/uL 10/25/2024 12:50 PM CDT [facility] IMMATURE GRANULOCYTES ABSOLUTE 0.03 K/uL 10/25/2024 12:50 PM [facility] Blood Venipuncture / Unknown 10/25/2024 12:34 PM CDT 10/25/2024 12:46 PM CDT us Argenis Min TRAINING ANALYST HEMATOLOGY ORDERABLES F inal Result [facility] CLIA # [id number] [address] [place] [address] * (ABNORMAL) HCG QUANTITATIVE, BLOOD (10/25/2024 12:34 PM CDT) HCG QUANT, BLOOD 989.0(H) <=1.0 mIU/mL 10/25/2024 1:15 PM CDT [facility] Comment: Male <= 2 mIU/mL Female Non premenopausal <= 1 mIU/mL Non postmenopausal <= 7 mIU/mL Gestational Age HCG Concentration 3 Weeks 5.4 - 72.0 mIU/mL 4 Weeks 10.2 - 708 mIU/mL 5 Weeks 217 - 8245 mIU/mL 6 Weeks 152 - 32,177 mIU/mL 7 Weeks 4059 - 153,767 mIU/mL 8 Weeks 31,366 - 149,094 mIU/mL 9 Weeks 59,109 - 135,901 mIU/mL 10 Weeks 44,186 - 170,409 mIU/mL 12 Weeks 27,107 - 201,615 mIU/mL 14 Weeks 24,302 - 93,646 mIU/mL 15 Weeks 12,540 - 69,747 mIU/mL 16 Weeks 8904 - 55,332 mIU/mL 17 Weeks 8240 - 51,793 mIU/mL 18 Weeks 9649 - 55,271 mIU/mL Blood Venipuncture / Unknown 10/25/2024 12:34 PM CDT 10/25/2024 12:46 PM CDT Argenis Min TRAINING ANALYST CHEMISTRY ORDERABLES Fi nal Result Performing Organization Address City/State/[facility] Co de Phone Number [facility] # [id number] [address] [address] documented in this encounter Visit Diagnoses Diagnosis Abdominal pain, acute, right lower quadrant- Primary Abdominal pain, right lower quadrant documented in this encounter Care Teams Forester Aide Relationship Specialty Start Date End Date Johnny Snyder MD [address] [phone] PCP - General Family Practice 01/16/24 documented as of this encounter
--- OUTSIDE RECORDS SUMMARY | 2024-10-25 15:00 | XMS_ITS | Encounter Summary ---
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) Social History Tobacco Use Types Packs/Day Years Used Date Smoking Tobacco: Never Assessed Comments Unknown Sex and Gender Information Value Date Recorded Sex Assigned at Not on file 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
--- OUTSIDE RECORDS SUMMARY | 2024-10-25 15:00 | XMS_ITS | Encounter Summary ---
Author Organization [facility] Address [address] [place] [address] Care Team Providers Care Respiratory Care Technician Name Role Phone Johnny Snyder MD Primary Care Provider [phone] Encounter Details Date Type Department Care Team (Late st Contact Info) Description 10/20/2024 External Device Data [place] ABSTRACTION Provider, Abstract NO ADDRESS ON FILE Social History Tobacco Use Types Packs/Day Years Used Date Smoking Tobacco: Never Smokeless Tobacco: Never Alcohol Use Standard Drinks/Week Comments No 0 (1 standard drink = 0.6 oz pur e alcohol) Comments No Sex and Gender Information Value Date Recorded Sex Assigned at Not on file Legal 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
--- OUTSIDE RECORDS SUMMARY | 2024-10-25 15:00 | XMS_ITS | Encounter Summary ---
Author Organization [facility] Address 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
--- OUTSIDE RECORDS SUMMARY | 2024-10-25 15:00 | XMS_ITS | Clinical Summary ---
Author Organization [facility] Address [address] [place] [address] Care Team Providers Care Tier Over Name Role Phone Dasha Snell MD Primary Care Provider Allergies No known active allergies Medications methylphenidate HCI (Metadate CD) 20 mg Controlled Dispense capsuleIndications :Attention deficit disorder, unspecified hyperactivity presence Take 1 capsule by mouth daily 30 Capsule 0 Active Active Problems Problem Noted Date Diagnosed Date ADD (attention deficit disorder) 06/21/2008 Overview (12/23/2009): Concerta would cause involuntary muscle twitching (12/18) Immunizations Immunization Administration Dates Next Due (INFANRIX)(6 WKS-6 YRS) DIPT HERIA, TETANUS TOXOIDS, AND ACCELLULAR PERTUSSIS VACCINE (DTAP), 0.5 ML IM 01/21/2003,02/23/2002,2001 (IPOL)(6 WKS AND UP) POLIOVI FLO VACCINE, INACTIVATED (IPV), 3 DOSE, SUBCUT OR IM 01/21/2003,02/23/2002,2001,09/09 (M-M-R II/PRIORIX)(12 MO UP) MEASLES, MUMPS AND RUBELLA VIRUS VACCINE, 0.5 ML IM/SUBCUT 12/17/2002 (VARIVAX)(12 MOS UP)VARICELL A VIRUS VACCINE (PF) 0.5 ML, SUB CUT 12/17/2002 HIB, Unspecified Formulation 06/28/2005, 12/17/2002,2001,09/09 HPV Vaccine 3 Dose IM VFC 08/30/2014,12/09/2013, 11/03/2013 06/03/2014 Hepatitis A Vaccine 04/20/2007 Hepatitis B Vaccine 12/17/2002,2001,2001 Influenza Vaccine Quad Split 3+ Yrs PF IM VFC 01/24/2015,12/09/2013 06/03/2014 Influenza Vaccine Split 3+ Yrs IM 12/23/2009 Influenza Vaccine Split 3+ Yrs IM VFC 12/03/2008 Influenza Vaccine Split 3+ Y rs PF IM VFC 05/04/2016,01/02/2013,11/29/2011 MMR Vaccine SQ VFC 10/19/2011 Meningococcal A Conjugate Vaccine IM 10/16/2017 Tdap Vaccine > 7 Yo IM VFC 10/19/2011 Varicella Vaccine Live Sq VFC 10/19/2011 Family History Medical History Relation Name Comments Other Father unknown Other Maternal Grandfather unknown Healthy Maternal Grandmother Other Mother unknown Other Paternal Grandfather unknown Other Paternal Grandmother unknown Breast Cancer Neg Hx Colon Cancer Neg Hx Relation Name Status Comments Father Maternal Grandfather Maternal Grandmother Alive Mother Alive Paternal Grandfather Paternal Grandmother Social History Tobacco Use Types Packs/Day Years Used Date Smoking Tobacco: Never Smokeless Tobacco: Never Alcohol Use Standard Drinks/Week Comments No 0 (1 standard drink = 0.6 oz pur e alcohol) Comments No Sex and Gender Information Value Date Recorded Sex Assigned at Not on file 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 Gender Identity Not on file Sexual Orientation Not on file Last Filed Vital Signs Vital Sign Reading Time Taken Comments Blood Pressure 94/68 11/21/2018 3:31 PM CDT Pulse 98 11/21/2018 3:31 PM CDT Temperature 36.6 C (97.8 F) 11/21/2018 3:31 PM CDT Respiratory Rate 14 08/26/2018 4:05 PM CDT Oxygen Saturation 99% 11/21/2018 3:31 PM CDT Inhaled Oxygen Concentration - - Weight 54.9 kg (121 lb) 11/21/2018 3:31 PM CDT Height 167.6 cm (5' 6 ) 11/21/2018 3:31 PM CDT Body Mass Index 19.53 11/21/2018 3:31 PM CDT Plan of Treatment Health Maintenance Due Date Last Done Comments CHLAMYDIA SCREENING (ANNUAL) 11-24 YEARS 01/28/2012 Preventative Visit-Managed Medicaid 01/28/2020 10/16/2017, 10/17/2016, 10/19/2011, Additional history exists DTAP/TDAP/TD VACCINES (5 - T d or Tdap) 10/18/2021 10/19/2011, 01/21/2003, 02/23/2002, Additional history exists CERVICAL CANCER SCREENING 2022 HPV/Cotest (21-29) 2022 PAP SMEAR 2022 INFLUENZA VACCINE (#1) 2024 7, 05/04/2016, 01/24/2015, Additional history exists HEPATITIS B VACCINES Completed 12/17/2002, 2001, 2001 HPV VACCINES Completed 08/30/2014, 03/2013, 11/03/2013, Additional history exists Insurance Care Teams Tier Over Relationship Specialty Start Date End Date Dasha Snell MD [address] [phone] PCP - General Family Practice 11/03/12
--- OUTSIDE RECORDS SUMMARY | 2024-10-25 15:00 | XMS_ITS | Clinical Summary ---
Author Organization [facility] Address [address] [place]: [place] [address] Care Team Providers Care C Iron Worker Name Role Phone Johnny Snyder MD Primary Care Provider [phone] Allergies No known active allergies Medications [id number]- fe-fA ( Vitamin) Tablet Take 1 Tablet by mouth daily. Active ferrous sulfate 325 mg (65 mg iron) tabletIndication s:Iron deficiency anemia secondary to inadequate dietary iron intake Take 1 Tablet (325 mg) by mouth daily. 90 Tablet 3 01/16/2024 Active Active Problems Problem Noted Date Diagnosed Date ADD (attention deficit disorder) 06/21/2008 Overview (07/07/2020): Concerta would cause involuntary muscle twitching (12/18) Comments Yes Encounters Date Type Department Care Team Description 10/25/2024 12:00 PM CDT - 10/25/2024 1:48 PM CDT Emergency [facility] Emergency Medicine [address] [place] [address] Abdominal pain, acute, right lower quadrant (Primary Dx) Discharge Disposition: Acute Care Hospital 10/25/2024 Travel 10/20/2024 External Device Data STL ABSTRACTION Provider, Abstract 10/20/2024 External Device Data [facility] ABSTRACTION Provider, Abstract 09/08/2024 External Device Data [facility] ABSTRACTION Provider, Abstract 09/08/2024 External Device Data [facility] ABSTRACTION Provider, Abstract 09/08/2024 External Device Data [facility] ABSTRACTION Provider, Abstract 09/01/2024 External Device Data [facility] ABSTRACTION Provider, Abstract 08/26/2024 External Device Data [facility] ABSTRACTION Provider, Abstract from Last 3 Months Immunizations Immunization Administration Dates Next Due (INFANRIX)(6 WKS-6 YRS) DIPT HERIA, TETANUS TOXOIDS, AND ACCELLULAR PERTUSSIS VACCINE (DTAP), 0.5 ML IM 01/21/2003,02/23/2002,2001 (IPOL)(6 WKS AND UP) POLIOVI FLO VACCINE, INACTIVATED (IPV), 3 DOSE, SUBCUT OR IM 01/21/2003,02/23/2002,2001,10/02 (M-M-R II/PRIORIX)(12 [place] UP) MEASLES, MUMPS AND RUBELLA VIRUS VACCINE, 0.5 ML IM/SUBCUT 12/17/2002 (VARIVAX)(12 MOS UP)VARICELL A VIRUS VACCINE (PF) 0.5 ML, SUB CUT 12/17/2002 HIB, Unspecified Formulation 06/28/2005, 12/17/2002,2001,10/02 HPV Vaccine 3 Dose IM VFC 08/30/2014,12/09/2013, 11/03/2013 Hepatitis A Vaccine 04/20/2007 Hepatitis B Vaccine 12/17/2002,2001,2001 INFLUENZA VACCINE QUADRIVALE NT 6 MOS UP PF IM 12/23/2020 INFLUENZA VACCINE TRIVALENT SPLIT VIRUS, (6 MOS UP), 0.5ML (PF), IM 01/16/2024 Influenza Vaccine Quad Split 3+ Yrs PF IM VFC 01/24/2015,12/09/2013 Influenza Vaccine Split 3+ Yrs IM 12/23/2009 [...] on file 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 Gender Identity Not on file Sexual [...] Mass Index 21.8 10/25/2024 12:07 PM CDT Plan of Treatment Health Maintenance Due Date Last Done Comments CHLAMYDIA SCREENING (ANNUAL) 11-24 YEARS 01/28/2012 DTAP/TDAP/TD VACCINES (5 - T d or Tdap) 10/18/2021 10/19/2011, 01/21/2003, 02/23/2002, Additional history exists CERVICAL CANCER SCREENING 2022 HPV/Cotest (21-29) 2022 PAP SMEAR 2022 COVID-19 Vaccine (2 - 2023-2 5 season) 2023 04/26/2021 Preventative Visit- Commercial 03/11/2024 0 10/16/2017, 10/17/2016, 10/19/2011, Additional history exists INFLUENZA VACCINE (#1) 2024 , 12/23/2020, 05/04/2016, Additional history exists RSV VACCINE (60+ or ) (1 - 1-dose 75+ series) 01/28/2076 HEPATITIS B VACCINES Completed 12/17/2002, 2001, 2001 HPV VACCINES Completed 08/30/2014, 1003/2013, 11/03/2013, Additional history exists Procedures Procedure Name Priority Date/Time Associated Diagnosis Comments COMPREHENSIVE METABOLIC PANEL Stat 10/25/2024 12:34 PM CDT CBC WITH DIFFERENTIAL Stat 10/25/2024 12:34 PM CDT HCG QUANTITATIVE, BLOOD Stat 10/25/2024 12:34 PM CDT from Last 3 Months Results * (ABNORMAL) CBC WITH DIFFERENTIAL (10/25/2024 12:34 PM CDT) WBC 5.7 4.0 - 10.0 K/uL 10/[facility] 4.69 3.93 - 5.22 M/uL 10/25/2024 12:50 PM [facility] HEMOGLOBIN 12.8 11.2 - 15.7 g/dL 10/25/2024 12:50 PM [facility] HEMATOCRIT 38.3 34.1 - 44.9 % 10/25/2024 12:50 PM [facility] MCV 81.7 79.4 - 94.8 fL 10/25/2024 12:50 PM [facility] MCH 27.3 25.6 - 32.2 pg 10/25/2024 12:50 PM [facility] MCHC 33.4 32.2 - 35.5 g/dL 10/25/2024 12:50 PM [facility] RDW 12.4 11.0 - 14.5 % 10/25/2024 12:50 PM [facility] RDW-STDEV 36.3(L) 36.9 - 56.9 fL 10/25/2024 12:50 PM [facility] PLATELETS 198 163 - 337 K/uL 10/25/2024 12:50 PM [facility] MPV 10.6 10.0 - 14.8 fL 10/25/2024 12:50 PM CDT [facility] NEUTROPHILS 68 34 - 71 % 10/25/2024 12:50 PM CDT [facility] LYMPHOCYTES 18(L) 19 - 52 % 10/25/2024 12:50 PM CDT [facility] MONOCYTES 10 5 - 13 % 10/25/2024 12:50 PM CDT [facility] EOSINOPHILS 4 1 - 6 % 10/25/2024 12:50 PM CDT [facility] BASOPHILS 1 0 - 1 % 10/25/2024 12:50 PM CDT [facility] IMMATURE GRANULOCYTES 1 % 10/25/2024 12:50 PM CDT [facility] NEUTROPHIL ABSOLUTE 3.86 1.56 - 6.13 K/uL 10/25/2024 12:50 PM CDT [facility] LYMPHOCYTE ABSOLUTE 1.03(L) 1.20 - 3.40 K/uL 10/25/2024 12:50 PM CDT [facility] MONOCYTE ABSOLUTE 0.54(H) 0.24 - 0.36 K/uL 10/25/2024 12:50 PM CDT [facility] EOSINOPHIL ABSOLUTE 0.20 0.04 - 0.36 K/uL 10/25/2024 12:50 PM CDT [facility] BASOPHILS ABSOLUTE 0.03 0.01 - 0.08 K/uL 10/25/2024 12:50 PM CDT [facility] IMMATURE GRANULOCYTES ABSOLUTE 0.03 K/uL 10/25/2024 12:50 PM [facility] Blood Venipuncture / Unknown 10/25/2024 12:34 PM CDT 10/25/2024 12:46 PM CDT us Argenis Min WRAPPING MACHINE OPERATOR HEMATOLOGY ORDERABLES F inal Result [facility] CLIA # [id number] [address] [place] [address] * (ABNORMAL) HCG QUANTITATIVE, BLOOD (10/25/2024 12:34 PM CDT) HCG QUANT, BLOOD 989.0(H) <=1.0 mIU/mL 10/25/2024 1:15 PM CDT [facility] Comment: Male <= 2 mIU/mL Female Non [...] 10/25/2024 12:46 PM CDT us Argenis Min WRAPPING MACHINE OPERATOR CHEMISTRY ORDERABLES Fi nal [id number] [address] [place] [address] * (ABNORMAL) COMPREHENSIVE METABOLIC PANEL (10/25/2024 12:34 PM CDT) Pathologist [facility] SODIUM 138 136 - 145 mmol/L 10/25/2024 1:14 PM CDT [facility] POTASSIUM 3.5 3.5 - 5.1 mmol/L 10/25/2024 1:14 PM CDT [facility] CHLORIDE 103 98 - 107 mmol/L 10/25/2024 1:14 PM CDT [facility] CO2 24 22 - 29 mmol/L 10/25/2024 1:14 PM [facility] CALCIUM 9.1 8.6 - 10.0 mg/dL 10/25/2024 1:14 PM [facility] BUN 9 6 - 20 mg/dL 10/25/2024 1:14 PM [facility] CREATININE 0.72 0.51 - 0.95 mg/dL 10/25/2024 1:14 PM [facility] GLUCOSE 54(LL) 74 - 99 mg/dL 10/25/2024 1:14 PM [facility] TOTAL PROTEIN 6.6 6.6 - 8.7 g/dL 10/25/2024 1:14 PM [facility] ALBUMIN 4.2 3.5 - 5.2 g/dL 10/25/2024 1:14 PM [facility] BILIRUBIN TOTAL 0.3 0.0 - 1.2 mg/dL 10/25/2024 1:14 PM [facility] ALKALINE PHOSPHATASE 55 35 - 104 U/L 10/25/2024 1:14 PM [facility] AST 15 0 - 35 U/L 10/25/2024 1:14 PM [facility] ALT 7 0 - 35 U/L 10/25/2024 1:14 PM [facility] GFR >60 >=60 mL/min/1.7 3 sq meter 10/25/2024 1:14 PM [facility] Comment:eGFR calculated with 2020 CKD-EPI equation. Vegetarian diet, extremely high or low muscle mass, and may affect results. Cystatin C with Glomerular Filtration Rate is a suitable alternative for these patients. ANION GAP 11 5 - 20 mmol/L 10/25/2024 1:14 PM [facility] Blood Venipuncture / Unknown 10/25/2024 12:34 PM CDT 10/25/2024 12:46 PM CDT us Argenis Min APRN CHEMISTRY ORDERABLES Fi nal Result [facility] CLIA # [id number] [address] [address] from Last 3 Months Insurance [facility] Care Teams C Iron Worker Relationship Specialty Start Date End Date Johnny Snyder MD [address] [facility] [address] [place] [phone] PCP - General Family Practice 01/16/24
--- OUTSIDE RECORDS SUMMARY | 2024-10-25 15:00 | XMS_ITS | Encounter Summary ---
Author Organization [facility] Address [address] Attn: [place] [address] Care Team Providers Care Baster Hand Name Role Phone Johnny Snyder MD Primary Care Provider [phone] Encounter Details Date Type Department Care Team (Latest Contact Info) Description 10/25/2024 Travel Social History Tobacco Use Types Packs/Day Years Used Date Smoking Tobacco: Never Smokeless Tobacco: Never Alcohol Use Standard Drinks/Week Comments No 0 (1 standard drink = 0.6 oz pur e alcohol) Comments Yes Sex and Gender Information Value Date Recorded Sex Assigned at Not on file 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
--- NOTE | 2024-10-25 15:01 | USR_ITS ---
PROCEDURE INFORMATION: Exam: US , Transvaginal Exam date and time: 10/25/2024 5:12 PM Clinical indication: Lmp or gestational age (in weeks): 6w0d based on lmp. 5w0d based on US crl; Other: Patient stated she came in due to + preg test; ; Prior surgery; Surgery date: 6+ months; Surgery type: Unsure of dates, but patient said she had part of her right fallopian tube removed due to ectopic. She also stated she had cervix repaired after giving ; Additional info: Vag bleeding TECHNIQUE: Imaging protocol: Real-time transvaginal obstetrical ultrasound of the maternal pelvis with image documentation. Transvaginal imaging was used for better evaluation of the fetus, adnexa, and/or cervix. COMPARISON: No relevant prior studies available. FINDINGS: Gestation: There is a suspected small intrauterine gestational sac with a mean sac diameter of 0.31 cm corresponding to a gestational age of 5 weeks 0 days. Probable small subchorionic hemorrhage. Ovaries are unremarkable other than a septated but otherwise simple cyst in the left ovary measuring about 1.5 cm. No uterine mass . There is moderate free fluid in the posterior cul-de-sac. US/US OB <=14 wk fetus w transvag IMPRESSION: Small empty appearing gestational sac as described above. Consider repeat ultrasound in 10-14 days if clinically warranted.
[2024-10-25 15:08] VITALS: BP 109/77; PULSE 101; RESP 16; TEMP 36.8; O2SAT 99
[2024-10-25 15:28] LABS: Hematocrit 41.9 % (36-47); Hemoglobin 13.40 g/dL (11.27-16.99); Mean Corpuscular HGB Conc 32.0 g/dL (30-55); Mean Corpuscular Hemoglobin 26.7 pg (27-33); Mean Corpuscular Volume 83.6 fl (85-98); Nucleated Red Blood Cells % 0 %; Platelet Count 219 10^3/cmm (157-399); Red Blood Count 5.01 10^6/uL (3.85-5.65); White Blood Count 7.07 10^3/uL (3.29-11.43)
[2024-10-25 15:59] LABS: Alanine Aminotransferase 10 U/L (0-33); Albumin Level 4.5 g/dL (3.5-5.2); Alkaline Phosphatase 63 U/L (35-105); Anion Gap 14.6 (5-19); Aspartate Amino Transferase 13 U/L (0-32); Blood Urea Nitrogen 9 mg/dL (6-20); Calcium 9.0 mg/dL (8.5-10.5); Carbon Dioxide 25 mmol/L (22-29); Chloride 102 mmol/L (98-107); Creatinine Clr Calc Pharmacy 125.4167; Globulin 2.8 g/dL (1.3-4.6); Glucose 120 mg/dL (65-115); Osmolality Calculated 286 mOsm/kg (285-295); Potassium 3.6 mmol/L (3.5-5.1); Sodium 138 mmol/L (136-145); Total Protein 7.3 g/dL (6.6-8.7)
--- NOTE | 2024-10-25 16:08 | ED_ITS ---
HPI - 2 General: Chief complaint: OB/Uterine Contractions Stated complaint: ultrasound Time Seen by Provider: 10/25/24 15:25 History of Present Illness: Chief complaint is positive home test and lower abdominal discomfort. The patient states that she had ectopic surgery in August. She states that ever since August she has had some soreness in the right side of her abdomen where she had her surgery. She states that she had a positive home test and she has had some intermittent lower abdominal cramping so she went to the ER at [facility] and was sent here as they did not have ultrasound. Related Data Home Medications ?Medication ?Instructions ?Recorded ?Confirmed acetaminophen 500 mg tablet 1,000 mg PO Q6H PRN Pain 0 06/10/23 10/25/24 ibuprofen 200 mg capsule 800 mg PO Q6H PRN Pain 06/0910/25/24 vitamin no.167-folic acid 1 tab PO DAILY 10/0910/25/24 400 mcg-dha 25 mg chewable tablet (One-A-Day ) Previous Rx's ?Medication ?Instructions ?Recorded ferrous sulfate 325 mg (65 mg 325 mg PO DAILY #30 tabs 05/30/21 iron) tablet,delayed release Allergies Allergy/AdvReac Type Severity Reaction Status Date / Time lactose AdvReac Mild ADR-Gastrointestinal Verified 09/16/24 08:33 Upset [facility] ED 2 [facility]: Medical History (Updated 10/25/24 @ 17:29 by Anup Birmingham MD) Pelvic pain History of multiple miscarriages Positive test Family History Father Diabetes Hypertension Grandmother Hypertension Grandfather Diabetes Denies family history of Colon cancer Ovarian cancer Prostate cancer Heart disease Hyperlipidemia Breast cancer Uterine cancer Thyroid disease Stroke Social History Smoking and tobacco/nicotine status: former use of tobacco/nicotine Physical Exam 2 Narrative: EXAM NARRATIVE: Alert oriented talkative no acute distress. Neck is supple. Moist mucous membranes. Normal conjunctiva. Full range ocular motion. Heart regular rhythm. Lung sounds clear. Abdomen soft. She has some mild suprapubic and right lower quadrant tenderness with no guarding or rebound. She tolerates deep palpation and abdominal rock. No tenderness of her back. She moves her extremities freely. No pitting edema. No rash in exposed areas. Skin is warm and dry. Speech is clear. No ataxia. She ambulates with normal gait. No tenderness or swelling on her legs or arms. Course 2 Vital Signs: Vital signs: Vital Signs Temperature 98.3 F 10/25/24 15:08 Pulse Rate 101 H 10/25/24 15:08 Respiratory Rate 16 10/25/24 15:08 Blood Pressure 109/77 10/25/24 15:08 Pulse Oximetry 99 10/25/24 15:08 Oxygen Delivery Me thod Room Air 10/25/24 15:08 MDM - OB/Uterine Contractions Medical Decision Making Patient presents complaining of some intermittent cramping and a positive home test. The patient states that ever since her surgery for her ectopic in August she has had some soreness in the right lower quadrant area. She states that was the site of her ectopic. She states no new pain in that area but she has been having some intermittent cramping pain and so she checked a home test and it was positive. She has been having some nausea and vomiting in the mornings. She states she has had that with her pregnancies in the past. No fever. No headache. No chest pain or shortness of breath. No cough. No dysuria. No suspected STI. No vaginal discharge. No vaginal bleeding. She states she would just get the intermittent cramping and so she went to get checked out and they did not have ultrasound at [facility] so they spoke to her [facility] who did her ectopic surgery and transferred her here for further evaluation. On exam patient does have some mild right lower quadrant and suprapubic tenderness. I discussed with her appendicitis. She states she has been tender and sore there ever since her surgery and does not feel she has any new abdominal pain in the right lower quadrant. I advised her natural course of appendicitis and difficulties with diagnosing it. She feels this is not new. She states she does get some intermittent cramping pain that she has had for the last 3 to 4 days. She states she had a positive home test and so she went to the emergency room. CBC CMP beta-hCG ordered. Patient is Rh+ on review of the record. Pelvic ultrasound is ordered. Urinalysis is ordered. Patient white count is 7. Hemoglobin is 13.4. Platelets 219. Creatinine 0.7. Liver enzymes are not elevated. Beta-hCG is 1285. Urinalysis and pelvic ultrasound are pending. Certainly patient would be high risk for ectopic . Appendicitis will be unlikely by exam and history but I advised immediate return for further evaluation for appendicitis if she has any new or worsening or progressive pain or fever or vomiting that is not normal for her with her . Patient expressed understanding and agreement with this and feels that she is not having any new right lower quadrant pain or tenderness. Pt endorsed to Dr. Vogel pending US. Lab Data 10/25/24 15:23 10/25/24 15:23 Laboratory Results WBC 7.07 10^3/uL (3.29-11.43) 10/25/24 15:23 RBC 5.01 10^6/uL (3.85-5.65) 10/25/24 15:23 Hgb 13.40 g/dL (11.27-16.99) 10/25/24 15:23 Hct 41.9 % (36-47) 10/25/24 15:23 MCV 83.6 fl (85-98) L 10/25/24 15:23 MCH 26.7 pg (27-33) L 10/25/24 15:23 MCHC 32.0 g/dL (30-55) 10/25/24 15:23 RDW 12.3 % (12.1-15.1) 10/25/24 15:23 Plt Count 219 10^3/cmm (157-399) 10/25/24 15:23 MPV 10.6 fL (7.4-10.4) H 10/25/24 15:23 Neut % (Auto) 68.9 % 10/25/24 15:23 Lymph % (Auto) 21.2 % 10/25/24 15:23 Miller % (Auto) 5.8 % 10/25/24 15:23 Eos % (Auto) 3.1 % 10/25/24 15:23 Baso % (Auto) 0.6 % 10/25/24 15:23 Neut # (Auto) 4.87 10^3/uL (1.8-7.7) 10/25/24 15:23 Lymph # (Auto) 1.5 10^3/uL (0.8-4.8) 10/25/24 15:23 Miller # (Auto) 0.4 10^3/uL (0.2-0.9) 10/25/24 15:23 Eos # (Auto) 0.2 10^3/uL (0.0-0.8) 10/25/24 15:23 Baso # (Auto) 0.0 10^3/uL (0.0-0.1) 10/25/24 15:23 Nucleated RBC % (auto) 0 % 10/25/24 15:23 Nucleated RBCs # 0.0 /100WBC 10/25/24 15:23 Sodium 138 mmol/L (136-145) 10/25/24 15:23 Potassium 3.6 mmol/L (3.5-5.1) 10/25/24 15:23 Chloride 102 mmol/L (98-107) 10/25/24 15:23 Carbon Dioxide 25 mmol/L (22-29) 10/25/24 15:23 Anion Gap 14.6 (5-19) 10/25/24 15:23 BUN 9 mg/dL (6-20) 10/25/24 15:23 Creatinine 0.7 mg/dL (0.5-0.9) 10/25/24 15:23 GFR Calculation 103.7 mL/min (90-130) 10/25/24 15:23 Glucose 120 mg/dL (65-115) H 10/25/24 15:23 Calculated Osmolality 286 mOsm/kg (285-295) 10/25/24 15:23 Calcium 9.0 mg/dL (8.5-10.5) 10/25/24 15:23 Total Bilirubin 0.2 mg/dL (0.15-1.2) 10/25/24 15:23 AST 13 U/L (0-32) 10/25/24 15:23 ALT 10 U/L (0-33) 10/25/24 15:23 Alkaline Phosphatase 63 U/L (35-105) 10/25/24 15:23 Total Protein 7.3 g/dL (6.6-8.7) 10/25/24 15:23 Albumin 4.5 g/dL (3.5-5.2) 10/25/24 15:23 Globulin 2.8 g/dL (1.3-4.6) 10/25/24 15:23 Ser , Semi-Qnt 1285.00 mIU/mL 10/25/24 15:23 Urine Color Yellow (Yellow) 10/25/24 15:58 Urine Appearance Cloudy (CLEAR) A 10/25/24 15:58 Urine pH 5.5 (5-7) 10/25/24 15:58 Ur Specific [place] 1.018 (1.005-1.030) 10/25/24 15:58 Urine Protein Negative (Negative) 10/25/24 15:58 Urine Glucose (UA) Negative (Normal) 10/25/24 15:58 Urine Ketones Negative (Negative) 10/25/24 15:58 Urine Blood Negative (Negative) 10/25/24 15:58 Urine Nitrate Negative (Negative) 10/25/24 15:58 Urine Bilirubin Negative (Negative) 10/25/24 15:58 Urine Urobilinogen 1.0 mg/dL (Negative) 10/25/24 15:58 Ur Leukocyte Esterase 1+ (Negative) A 10/25/24 15:58 Urine RBC None /hpf (0-2) 10/25/24 15:58 Urine WBC 5-10 /hpf (0-5) H 10/25/24 15:58 Ur Squamous Epith Cells 5-10 /hpf (0-5) H 10/25/24 15:58 Amorphous Sediment Not Reportable 10/25/24 15:58 XR interpretation done by ED provider, pending radiology final review Discharge Plan Discharge Clinical Impression: Pelvic pain during Condition: Stable Prescriptions: No Action ibuprofen 200 mg Capsule 800 mg PO Q6H PRN (Reason: Pain) acetaminophen 500 mg Tablet 1,000 mg PO Q6H PRN (Reason: Pain) One-A-Day 400 mcg- 25 mg Tablet,Chewable 1 tab PO DAILY ferrous sulfate 325 mg (65 mg iron) tablet,delayed release (DR/EC) 325 mg PO DAILY Qty: 30 0RF Print Language: Slovak Coding Level of Care Code ED [employer] for Anthony Abad
[2024-10-25 16:09] LABS: Glucose Urine UA Negative (Normal); Nitrate Urine Negative (Negative); Specific Gravity, Urine 1.018 (1.005-1.030)
== END 2024-10-25 17:53 | disposition home or self-care (01) ==
PROVIDERS: Emergency Medicine; Emergency Provider Emergency Medicine
DX: O26.891 Other specified pregnancy related conditions, first trimester (principal); Z3A.08 8 weeks gestation of pregnancy; R10.2 Pelvic and perineal pain; Z87.891 Personal history of nicotine dependence
CPT/HCPCS: 36415; 76801; 76817; 80053; 81001; 84702; 85025; 99284